=== PATIENT | female | born 1945 | race Caucasian/White ===

== ENCOUNTER 2019-09-02 11:57 | Emergency (ER) | payer MEDICARE ==
[2019-09-02] MEDS ORDERED: NA CHLORIDE 0.9% 500 ML ONE ×2 (13:03→14:23)
[2019-09-02 13:12] LABS: Absolute Lymphocytes (CBC) 2.6 K/uL (0.7-4.9); Basophils % 0.7 % (0-1.3); Hematocrit 41.1 % (36.0-45.0); Lymphocytes % 30.5 % (15.3-44.8); RBC Red Blood Cell Count 4.66 M/uL (3.86-4.86)
[2019-09-02 13:18] LABS: Protime INR 1.07
[2019-09-02 13:37] LABS: ALT/SGPT 26 U/L (12-78); AST/SGOT 17 U/L (15-37); Albumin 3.4 g/dL (3.4-5.0); Alkaline Phosphatase 97 U/L (45-117); BUN Blood Urea Nitrogen 13 mg/dL (7-18); Bicarbonate 28 mmol/L (21-32); Bilirubin Direct 0.1 mg/dL (0-0.2); Bilirubin Total 0.5 mg/dL (0.2-1.0); Glucose Level 328 mg/dL (74-106); Magnesium 1.9 mg/dL (1.8-2.4); NT PRO-BNP 80 pg/mL (<125); Potassium 4.2 mmol/L (3.5-5.1); Protein, Total 7.6 g/dL (6.4-8.2); Sodium Level 139 mmol/L (136-145); Troponin (Emerg Dept Use Only) < 0.02 ng/mL (0.0-0.045)
--- NOTE | 2019-09-02 13:39 | RAD REPORT ---
EXAM DESCRIPTION: RAD - Pelvis - 09/02/2019 1:14 pm CLINICAL HISTORY: Pelvic pain status post fall FINDINGS: No fracture or dislocation is seen.
--- NOTE | 2019-09-02 13:39 | RAD REPORT ---
EXAM DESCRIPTION: RAD - Hip Left 2 View - 09/02/2019 1:14 pm CLINICAL HISTORY: Left hip pain status post injury FINDINGS: No fracture or dislocation is seen.
--- NOTE | 2019-09-02 13:39 | RAD REPORT ---
EXAM DESCRIPTION: CT - Head C Spine Cap Wo Con - 09/02/2019 1:24 pm TECHNIQUE: Computed axial tomography of the head and cervical spine was obtained. Coronal and sagitt al reconstruction was performed Computed axial tomography of the chest, abdomen and pelvis was obtained. Contrast was not requested. All CT scans are performed using dose optimization technique as appropriate and may include automated exposure control or mA/KV adjustment according to patient size. CLINICAL HISTORY: Head and neck injury with chest and abdominal pain status post fall COMPARISON: CT 2017 head and neck FINDINGS: An intracranial bleed is not seen. The ventricles are normal in caliber. An extra-axial fluid collection is not noted. . Fluid within the sinuses/mastoids is not seen. A cervical fracture is not seen. No dislocation is noted. The evaluation of mediastinum, adelaida, vessels, solid organs and bowel are limited secondary to the lac k of contrast administration. A mediastinal hematoma is not noted. A pleural effusion is not seen. A lung contusion is not present. The liver,spleen, pancreas, adrenals,kidneys and bladder do not demonstrate a traumatic injury Fatty liver Nonobstructing left renal calculus IMPRESSION: 1. No acute intracranial abnormality is seen. 2. A cervical fracture is not visualized. If the patient continues have symptoms to suggest intracran ial/spinal cord pathology MRI be recommended 3. No traumatic abnormality involving the chest/abdomen/pelvis.
[2019-09-02] MEDS ORDERED: INSULIN -REGULAR HUMAN 50 UNIT/0.5 ML ML ONE (14:26)
--- NOTE | 2019-09-02 15:31 | EKG ---
Test Date: 2019-09-02 Test Time: 14:08:42 Systems Operator: SHANNON MEASUREMENT RESULTS: Intervals: Rate: 89 VT: 186 QRSD: 92 QT: 386 QTc: 469 [place]: P: 63 VT: 186 QRS: 2 T: 46 INTERPRETIVE STATEMENTS: Normal sinus rhythm Normal ECG Compared to ECG 05/24/2017 12:27:50 No significant changes Electronically Signed On 09-02-19 15:30:51 BARREL FINISHER by Valentín Carey
[2019-09-02 15:35] LABS: Urine Blood TRACE (NEG); Urine Glucose 2+ (NEG); Urine Protein NEGATIVE (NEG); Urine Specific Gravity 1.015 (1.005-1.030)
[2019-09-02] MEDS ORDERED: CEFTRIAXONE/SWI 1gm 1 GM/10 ML SYR ONE (15:42)
--- NOTE | 2019-09-02 16:25 | EDPHYS ---
Physician Documentation [facility] Name: Iman Saunders Age: 73 yrs Sex: Female : 1945 Arrival Date: 09/02/2019 Time: 11:59 Bed 24 Private MD: ED Physician Catrachito Rodriguez HPI: 09/02 12:55 This 73 yrs old Female presents to ER via EMS with complaints of Fall Injury. diaz 12:55 Details of fall: The patient fell from an upright position, while walking. Onset: The diaz symptoms/episode began/occurred just prior to arrival, this morning. Associated injuries: The patient sustained injury to the head, neck injury, injury to the chest, left hip, decreased range of motion, painful injury. 12:58 Severity of symptoms: At their worst the symptoms were moderate, in the emergency diaz department the symptoms are unchanged. The patient has not experienced similar symptoms in the past. Historical: - Allergies: 13:20 "pack per day injection"; mg2 13:20 Iodine; mg2 13:20 Macrobid; mg2 13:20 Nitrofurantoin Macrocrystal; mg2 13:20 Phenobarbital; mg2 13:20 shrimp; mg2 - Home Meds: 13:20 Aspirin Oral [Active]; gabapentin Oral [Active]; losartan Oral [Active]; Lipitor 10 mg mg2 Oral tab 1 tab once daily [Active]; montelukast Oral [Active]; Synthroid 50 mcg Oral tab 1 tab once daily [Active]; - PMHx: 13:20 CVA; High Cholesterol; Hypothyroidism; Seizures; Diabetes - NIDDM; mg2 - Immunization history:: Flu vaccine is up to date. - Family history:: not pertinent. - Social history:: Smoking status: Patient/guardian denies using tobacco, Patient/guardian denies using alcohol, street drugs, IV drugs. - Ebola Screening: : No symptoms or risks identified at this time. ROS: 12:55 Constitutional: Negative for fever, chills, and weight loss, Eyes: Negative for injury, diaz pain, redness, and discharge, ENT: Negative for injury, pain, and discharge, Neck: Negative for injury, pain, and swelling, Cardiovascular: Negative for chest pain, palpitations, and edema, Respiratory: Negative for shortness of breath, cough, wheezing, and pleuritic chest pain, Abdomen/GI: Negative for abdominal pain, nausea, vomiting, diarrhea, and constipation, Back: Negative for injury and pain, : Negative for injury, bleeding, discharge, and swelling, Skin: Negative for injury, rash, and discoloration, Neuro: Negative for headache, weakness, numbness, tingling, and seizure, Psych: Negative for depression, anxiety, suicide ideation, homicidal ideation, and hallucinations, Allergy/Immunology: Negative for hives, rash, and allergies, Endocrine: Negative for neck swelling, polydipsia, polyuria, polyphagia, and marked weight changes, Hematologic/Lymphatic: Negative for swollen nodes, abnormal bleeding, and unusual bruising. 12:55 MS/extremity: Positive for decreased range of motion, pain, tenderness, of the left eye and left jaw and pelvis and left hip. Exam: 12:55 Constitutional: This is a well developed, well nourished patient who is awake, alert, diaz and in no acute distress. Eyes: Pupils equal round and reactive to light, extra-ocular motions intact. Lids and lashes normal. Conjunctiva and sclera are non-icteric and not injected. Cornea within normal limits. Periorbital areas with no swelling, redness, or edema. ENT: Nares patent. No nasal discharge, no septal abnormalities noted. Tympanic membranes are normal and external auditory canals are clear. Oropharynx with no redness, swelling, or masses, exudates, or evidence of obstruction, uvula midline. Mucous membranes moist. Neck: Trachea midline, no thyromegaly or masses palpated, and no cervical lymphadenopathy. Supple, full range of motion without nuchal rigidity, or vertebral point tenderness. No Meningismus. Chest/axilla: Normal chest wall appearance and motion. Nontender with no deformity. No lesions are appreciated. Cardiovascular: Regular rate and rhythm with a normal S1 and S2. No gallops, murmurs, or rubs. Normal PMI, no JVD. No pulse deficits. Respiratory: Lungs have equal breath sounds bilaterally, clear to auscultation and percussion. No rales, rhonchi or wheezes noted. No increased work of breathing, no retractions or nasal flaring. Abdomen/GI: Soft, non-tender, with normal bowel sounds. No distension or tympany. No guarding or rebound. No evidence of tenderness throughout. Back: No spinal tenderness. No costovertebral tenderness. Full range of motion. Female : Normal external genitalia. Skin: Warm, dry with normal turgor. Normal color with no rashes, no lesions, and no evidence of cellulitis. Neuro: Awake and alert, GCS 15, oriented to person, place, time, and situation. Cranial nerves II-XII grossly intact. Motor strength 5/5 in all extremities. Sensory grossly intact. Cerebellar exam normal. Normal gait. Psych: Awake, alert, with orientation to person, place and time. Behavior, mood, and affect are within normal limits. 12:55 Head/face: Noted is abrasion(s), contusion. 12:55 Neck: External neck: tenderness, that is mild, of the left sternocleidomastoid. Vital Signs: 12:05 BP 162 / 81 RA Supine (auto/lg); Pulse 92; Resp 20 S; Temp 99.4(O); Pulse Ox 94% on jp3 R/A; Weight 83.91 kg; Height 5 ft. 3 in. (160.02 cm); Pain 8/10; 14:33 Pulse 94; Resp 18; Pulse Ox 96% on R/A; mg2 14:44 BP 160 / 77; mg2 12:05 Body Mass Index 32.77 (83.91 kg, 160.02 cm) jp3 MDM: 12:12 Patient medically screened. [facility] 12:58 Data reviewed: vital signs, nurses notes, lab test result(s), EKG, radiologic studies. [facility] 09/02 12:55 Order name: Basic Metabolic Panel; Complete Time: 13:41 [facility] 09/02 12:55 Order name: CBC with Diff; Complete Time: 13:41 [facility] 09/02 12:55 Order name: LFT's; Complete Time: 13:41 [facility] 09/02 12:55 Order name: Magnesium; Complete Time: 13:41 [facility] 09/02 12:55 Order name: NT PRO-BNP; Complete Time: 13:41 [facility] 09/02 12:55 Order name: PT-INR; Complete Time: 13:41 [facility] 12 12:55 Order name: Troponin (emerg Dept Use Only); Complete Time: 13:41 [facility] 09/02 12:55 Order name: CT Traumagram (Head C Spine CAP wo con); Complete Time: 13:45 [facility] 09/02 12:55 Order name: Pelvis XRAY; Complete Time: 13:45 [facility] 09/02 12:55 Order name: Hip Left 2 View XRAY; Complete Time: 13:45 [facility] 09/02 15:26 Order name: Urine Dipstick--Ancillary (enter results) em1 09/02 15:34 Order name: Glucose, Ancillary Testing; Complete Time: 15:35 EDMS 09/02 12:55 Order name: EKG; Complete Time: 12:56 [facility] 09/02 12:55 Order name: Cardiac monitoring; Complete Time: 13:23 [facility] 09/02 12:55 Order name: EKG - Nurse/Tech; Complete Time: 14:10 [facility] 09/02 12:55 Order name: IV Saline Lock; Complete Time: 13:23 [facility] 09/02 12:55 Order name: Labs collected and sent; Complete Time: 13:23 [facility] 09/02 12:55 Order name: O2 Per Protocol; Complete Time: 13:23 [facility] 09/02 12:55 Order name: O2 Sat Monitoring; Complete Time: 13:23 [facility] 09/02 12:55 Order name: Urine Dipstick-Ancillary (obtain specimen); Complete Time: 15:24 [facility] Administered Medications: 13:23 Drug: NS 0.9% 1000 ml Route: IV; Rate: 125 ml/hr; Site: left antecubital; mg2 15:45 Follow up: Response: No adverse reaction; IV Status: Order to discontinue infusion mg2 14:25 Drug: Insulin Regular Human 10 units {Co-Signature: rv (Francisco Javier Gonsales RN).} Route: mg2 IVP; Site: left antecubital; 15:43 Follow up: Response: No adverse reaction; Blood sugar is lowered mg2 14:27 Drug: NS 0.9% 1000 ml Route: IV; Rate: 1 bolus; Site: left antecubital; mg2 15:44 Follow up: Response: No adverse reaction; IV Status: Completed infusion; IV Intake: mg2 1000ml 15:43 Drug: Rocephin 1 grams Route: IV; Rate: per protocol; Site: left antecubital; mg2 15:44 Follow up: Response: No adverse reaction; IV Status: Completed infusion mg2 Disposition: 09/02/19 13:48 Discharged to Home. Impression: Fall due to bumping against object, Superficial injury of head, Strain of muscle, fascia and tendon at neck level, Type 2 diabetes mellitus, Unspecified kidney failure - INSUFFICENCY, Urinary tract infection, site not specified. - Condition is Stable. - Discharge Instructions: Type 2 Diabetes Mellitus, Diagnosis, Adult, Dysuria, Head Injury, Adult, Muscle Strain, Cervical Sprain, [id number], Fall Prevention in the Home, Tegy-[id number], Head Injury, Adult, [id number], Type 2 Diabetes Mellitus, Diagnosis, Adult, Luxx-qz-Murg. - Prescriptions for Tylenol- Codeine #3 300-30 mg Oral Tablet - take 2 tablets by ORAL route every 6 hours As needed; 26 tablet. Valium 2 mg Oral Tablet - take 1 tablet by ORAL route every 8 hours As needed; 20 tablet. Cipro 250 mg Oral Tablet - take 1 tablet by ORAL route every 12 hours; 14 tablet. - Medication Reconciliation Form, Thank You Letter, Antibiotic Education, Prescription Opioid Use form. - Follow up: Private Physician; When: 2 - 3 days; Reason: Recheck today's complaints, Continuance of care, Re-evaluation by your physician. Follow up: Jae Petersen MD; When: 2 - 3 days; Reason: Recheck today's complaints, Re-evaluation by your physician. - Problem is new. - Symptoms have improved. Signatures: Dispatcher [employer] EDCatrachito Moseley MD MD cha Gardose, Michele, RN KATY mg2 Francisco Javier Gonsales RN RN farheen Gonsales RN rv Corrections: (The following items were deleted from the chart) 15:37 13:48 09/02/2019 13:48 Discharged to Home. Impression: Fall due to bumping against diaz object; Superficial injury of head; Strain of muscle, fascia and tendon at neck level; Type 2 diabetes mellitus; Unspecified kidney failure - INSUFFICENCY. Condition is Stable. Forms are Medication Reconciliation Form, Thank You Letter, Antibiotic Education, Prescription Opioid Use. Follow up: Private Physician; When: 2 - 3 days; Reason: Recheck today's complaints, Continuance of care, Re-evaluation by your physician. Follow up: Jae Petersen; When: 2 - 3 days; Reason: Recheck today's complaints, Re-evaluation by your physician. Problem is new. Symptoms have improved. diaz 16:23 15:37 09/02/2019 13:48 Discharged to Home. Impression: Fall due to bumping against rv object; Superficial injury of head; Strain of muscle, fascia and tendon at neck level; Type 2 diabetes mellitus; Unspecified kidney failure - INSUFFICENCY; Urinary tract infection, site not specified. Condition is Stable. Discharge Instructions: Type 2 Diabetes Mellitus, Diagnosis, Adult, Head Injury, Adult, Muscle Strain, Cervical Sprain, [id number]-[id number], Fall Prevention in the Home, Zncq-[id number], Head Injury, Adult, Lyjo-wr-Gqvv, Type 2 Diabetes Mellitus, Diagnosis, Adult, Wpbu-tr-Wzhs. Prescriptions for Tylenol-Codeine #3 300-30 mg Oral Tablet - take 2 tablets by ORAL route every 6 hours As needed; 26 tablet, Valium 2 mg Oral Tablet - take 1 tablet by ORAL route every 8 hours As needed; 20 tablet. and Forms are Medication Reconciliation Form, Thank You Letter, Antibiotic Education, Prescription Opioid Use. Follow up: Private Physician; When: 2 - 3 days; Reason: Recheck today's complaints, Continuance of care, Re-evaluation by your physician. Follow up: Jae Petersen; When: 2 - 3 days; Reason: Recheck today's complaints, Re-evaluation by your physician. Problem is new. Symptoms have improved. diaz
--- NOTE | 2019-09-02 16:25 | ER ---
Nurse's Notes [facility] Name: Iman Saunders Age: 73 yrs Sex: Female : 1945 Arrival Date: 09/02/2019 Time: 11:59 Bed 24 Private MD: Diagnosis: Fall due to bumping against object;Superficial injury of head;Strain of muscle, fascia and tendon at neck level;Type 2 diabetes mellitus;Unspecified kidney failure-INSUFFICENCY;Urinary tract infection, site not specified Presentation: 09/02 12:08 Presenting complaint: EMS states: she was walking outside [facility] 30 min ago to her car mg2 when she tripped and fell and hit her left eye on the door of her car, she sustained neck pain, left shoulder and both hand pain. Care prior to arrival: Medication(s) given: toradol 30 mg IV. 12:08 Acuity: CAYETANO 3 mg2 12:08 Method Of Arrival: EMS: [facility] mg2 12:57 Transition of care: patient was not received from another setting of care. Onset of mg2 symptoms was September 02, 2019. Risk Assessment: Do you want to hurt yourself or someone else? Patient reports no desire to harm self or others. Initial Sepsis Screen: Does the patient meet any 2 criteria? No. Patient's initial sepsis screen is negative. Does the patient have a suspected source of infection? No. Patient's initial sepsis screen is negative. Historical: - Allergies: 13:20 "pack per day injection"; mg2 13:20 Iodine; mg2 13:20 Macrobid; mg2 13:20 Nitrofurantoin Macrocrystal; mg2 13:20 Phenobarbital; mg2 13:20 shrimp; mg2 - Home Meds: 13:20 Aspirin Oral [Active]; gabapentin Oral [Active]; losartan Oral [Active]; Lipitor 10 mg mg2 Oral tab 1 tab once daily [Active]; montelukast Oral [Active]; Synthroid 50 mcg Oral tab 1 tab once daily [Active]; - PMHx: 13:20 CVA; High Cholesterol; Hypothyroidism; Seizures; Diabetes - NIDDM; mg2 - Immunization history:: Flu vaccine is up to date. - Family history:: not pertinent. - Social history:: Smoking status: Patient/guardian denies using tobacco, Patient/guardian denies using alcohol, street drugs, IV drugs. - Ebola Screening: : No symptoms or risks identified at this time. Screenin:55 Abuse screen: Denies threats or abuse. Denies injuries from another. Nutritional mg2 screening: No deficits noted. Tuberculosis screening: No symptoms or risk factors identified. Fall Risk Fall in past 12 months (25 points). IV access (20 points). Assessment: 12:55 General: Appears in no apparent distress. comfortable, Behavior is calm, cooperative. mg2 Pain: Complains of pain in neck, both hand and left shoulder. Neuro: Level of Consciousness is awake, alert, obeys commands, Oriented to person, place, time, situation. Cardiovascular: Capillary refill < 3 seconds Patient's skin is warm and dry. Respiratory: Airway is patent Respiratory effort is even, unlabored, Respiratory pattern is regular, symmetrical. GI: No signs and/or symptoms were reported involving the gastrointestinal system. : No signs and/or symptoms were reported regarding the genitourinary system. EENT: No signs and/or symptoms were reported regarding the EENT system. Derm: Skin is intact, is healthy with good turgor, Skin is pink, warm \\T\\ dry. normal. Musculoskeletal: Circulation, motion, and sensation intact. Capillary refill < 3 seconds, Reports pain in neck, shoulder and both hand and face. 13:21 Reassessment: patient sent to ct scan via stretcher. backboard removed by the provider. mg2 c-collar still on with the patient;. 14:33 Reassessment: Patient appears in no apparent distress at this time. Patient and/or mg2 family updated on plan of care and expected duration. Pain level reassessed. Patient is alert, oriented x 3, equal unlabored respirations, skin warm/dry/pink. 16:05 Reassessment: patient up for dc. just waiting for the supervisor metal fabricating to call me back about mg2 her transportation. 16:21 Reassessment: Patient's sister called to tell the she is sending her daughter to pick rv up the patient. Vital Signs: 12:05 BP 162 / 81 RA Supine (auto/lg); Pulse 92; Resp 20 S; Temp 99.4(O); Pulse Ox 94% on jp3 R/A; Weight 83.91 kg; Height 5 ft. 3 in. (160.02 cm); Pain 8/10; 14:33 Pulse 94; Resp 18; Pulse Ox 96% on R/A; mg2 14:44 BP 160 / 77; mg2 12:05 Body Mass Index 32.77 (83.91 kg, 160.02 cm) jp3 ED Course: 11:59 Patient arrived in ED. em1 12:05 Initial lab(s) drawn, by me, held in ED. jp3 12:05 Maintain EMS IV. Dressing intact. Good blood return noted. Site clean \\T\\ dry. Gauge \\T\\ milan 3 site: 20gauge in Left AC. 12:08 Abel Muñoz, RN is Primary Nurse. mg2 12:12 Catrachito Rodriguez MD is Attending Physician. diaz 12:13 Patient has correct armband on for positive identification. Bed in low position. Call jp3 light in reach. Side rails up X 1. Side rails up X2. patient remains in c-collar and backboard that they arrived in from EMS. Warm blanket given. Verbal reassurance given. Pulse ox on. NIBP on. 12:23 Triage completed. mg2 13:15 Pelvis XRAY In Process Unspecified. EDMS 13:15 Hip Left 2 View XRAY In Process Unspecified. EDMS 13:21 Arm band placed on. mg2 13:21 No provider procedures requiring assistance completed. mg2 13:25 CT Traumagram (Head C Spine CAP wo con) In Process Unspecified. EDMS 13:46 Jae Petersen MD is Referral Physician. diaz 14:10 EKG done, by ED staff, reviewed by Catrachito Rodriguez MD. jp3 16:23 IV discontinued, intact, bleeding controlled, No redness/swelling at site. Pressure rv dressing applied. Administered Medications: 13:23 Drug: NS 0.9% 1000 ml Route: IV; Rate: 125 ml/hr; Site: left antecubital; mg2 15:45 Follow up: Response: No adverse reaction; IV Status: Order to discontinue infusion mg2 14:25 Drug: Insulin Regular Human 10 units {Co-Signature: rv (Francisco Javier Gonsales RN).} Route: mg2 IVP; Site: left antecubital; 15:43 Follow up: Response: No adverse reaction; Blood sugar is lowered mg2 14:27 Drug: NS 0.9% 1000 ml Route: IV; Rate: 1 bolus; Site: left antecubital; mg2 15:44 Follow up: Response: No adverse reaction; IV Status: Completed infusion; IV Intake: mg2 1000ml 15:43 Drug: Rocephin 1 grams Route: IV; Rate: per protocol; Site: left antecubital; mg2 15:44 Follow up: Response: No adverse reaction; IV Status: Completed infusion mg2 Intake: 15:44 IV: 1000ml; Total: 1000ml. mg2 Outcome: 13:48 Discharge ordered by MD. perales 16:22 Discharged to home ambulatory. rv 16:22 Condition: good 16:22 Discharge instructions given to patient, Instructed on discharge instructions, follow up and referral plans. medication usage, Demonstrated understanding of instructions, follow-up care, medications, Prescriptions given X 2. 16:23 Patient left the ED. rv Signatures: Dispatcher [employer] EDMS Catrachito Rodriguez MD MD cha Martinez, Eric 1 Abel Muñoz, KATY RN mg2 Francisco Javier Gonsales RN RN rv Conner Wetzel jp3 Francisco Javier Gonsales RN rv
[2019-09-02 16:31] VITALS: TEMP 99.4
[2019-09-02 16:32] VITALS: O2SAT 96
[2019-09-02 16:34] VITALS: BP 160/77
== END 2019-09-02 16:23 | disposition home or self-care (01) ==
LOC: ER 11:57
DX: S16.1XXA Strain of muscle, fascia and tendon at neck level, initial encounter (principal); N39.0 Urinary tract infection, site not specified; E11.9 Type 2 diabetes mellitus without complications; N28.9 Disorder of kidney and ureter, unspecified; E03.9 Hypothyroidism, unspecified; G40.909 Epilepsy, unspecified, not intractable, without status epilepticus; E78.00 Pure hypercholesterolemia, unspecified; W18.00XA Striking against unspecified object with subsequent fall, initial encounter; Y93.9 Activity, unspecified; Y92.9 Unspecified place or not applicable; Z79.82 Long term (current) use of aspirin; Z88.1 Allergy status to other antibiotic agents; Z88.5 Allergy status to narcotic agent; Z91.013 Allergy to seafood; Z91.048 Other nonmedicinal substance allergy status
CPT/HCPCS: 96361; 93005; 85025; 80048; 36415; 83735; 85610; 82947; 80076; 81003; 84484; 83880; 70450; 71250; 72125; 72170; 73502; 96375; 96374; 99284; J0696; J7040 ×2

== ENCOUNTER 2019-11-20 16:47 | Emergency (ER) | payer MEDICARE ==
[2019-11-20] MEDS ORDERED: FLUORESCEIN SODIUM 1 MG/WRAP ONE (17:32)
[2019-11-20] MEDS ORDERED: TETRACAINE HCL 0.5% 4ML OPTH ONE (17:32)
--- NOTE | 2019-11-20 17:48 | EDPHYS ---
Physician Documentation [facility] Name: Iman Saunders Age: 74 yrs Sex: Female : 1945 Arrival Date: 11/20/2019 Time: 16:48 Bed 15 Private MD: Del Strong T ED Physician Catrachito Rodriguez HPI: 11/19 17:48 This 74 yrs old Female presents to ER via Ambulatory with complaints of Eye jr8 Problem. 17:48 The patient is experiencing pain, redness, tearing. Onset: The symptoms/episode jr8 began/occurred acutely, today. Duration: the symptoms are continuous. Aggravated by nothing. Alleviated by nothing. Associated signs and symptoms: Pertinent positives: skin rash. Severity of symptoms: At their worst the symptoms were moderate in the emergency department the symptoms are unchanged. The patient has not experienced similar symptoms in the past. The patient has not recently seen a physician. Historical: - Allergies: 17:17 "pack per day injection"; iw 17:17 Iodine; iw 17:17 Macrobid; iw 17:17 Nitrofurantoin Macrocrystal; iw 17:17 Phenobarbital; iw 17:17 shrimp; iw - Home Meds: 17:17 Aspirin Oral [Active]; gabapentin Oral [Active]; Lipitor 10 mg Oral tab 1 tab once iw daily [Active]; losartan Oral [Active]; montelukast Oral [Active]; Synthroid 50 mcg Oral tab 1 tab once daily [Active]; - PMHx: 17:17 CVA; Diabetes - NIDDM; High Cholesterol; Hypothyroidism; Seizures; iw - Immunization history:: Adult Immunizations up to date. - Social history:: Smoking status: Patient denies any tobacco usage or history of. ROS: 17:48 ENT: Negative for injury, pain, and discharge, Neck: Negative for injury, pain, and jr8 swelling, Cardiovascular: Negative for chest pain, palpitations, and edema, Respiratory: Negative for shortness of breath, cough, wheezing, and pleuritic chest pain, Abdomen/GI: Negative for abdominal pain, nausea, vomiting, diarrhea, and constipation, Back: Negative for injury and pain, MS/Extremity: Negative for injury and deformity, Neuro: Negative for headache, weakness, numbness, tingling, and seizure. 17:48 Eyes: Positive for pain, redness, tearing, of the left eye. 17:48 Skin: Positive for lesions, rash, of the face. Exam: 17:48 Head/Face: Normocephalic, atraumatic. ENT: Nares patent. No nasal discharge, no jr8 septal abnormalities noted. Tympanic membranes are normal and external auditory canals are clear. Oropharynx with no redness, swelling, or masses, exudates, or evidence of obstruction, uvula midline. Mucous membranes moist. Neck: Trachea midline, no thyromegaly or masses palpated, and no cervical lymphadenopathy. Supple, full range of motion without nuchal rigidity, or vertebral point tenderness. No Meningismus. Cardiovascular: Regular rate and rhythm with a normal S1 and S2. No gallops, murmurs, or rubs. Normal PMI, no JVD. No pulse deficits. Respiratory: Lungs have equal breath sounds bilaterally, clear to auscultation and percussion. No rales, rhonchi or wheezes noted. No increased work of breathing, no retractions or nasal flaring. Abdomen/GI: Soft, non-tender, with normal bowel sounds. No distension or tympany. No guarding or rebound. No evidence of tenderness throughout. Back: No spinal tenderness. No costovertebral tenderness. Full range of motion. MS/ Extremity: Pulses equal, no cyanosis. Neurovascular intact. Full, normal range of motion. Neuro: Awake and alert, GCS 15, oriented to person, place, time, and situation. Cranial nerves II-XII grossly intact. Motor strength 5/5 in all extremities. Sensory grossly intact. Cerebellar exam normal. Normal gait. 17:48 Eyes: Periorbital structures: erythema, that is mild, on the left supraorbital ridge, left upper eyelid and left lower eyelid, vesicular lesions note to upper eye lid, Pupils: equal, round, and reactive to light and accomodation, Extraocular movements: intact throughout, Conjunctiva: injected, in the left eye, tearing noted, in left eye, Corneas: no acute changes, no evidence of abrasion, no dendritic lesions noted, a fluorescein strip employed to appreciate the findings, Sclera: no appreciated abnormality, Anterior chamber: normal, Examination of the other eye reveals no obvious gross abnormality. 17:48 Skin: rash a moderate rash is noted, rash can be described as erythematous, vesicular, zoster, on the left side of face and scalp. Vital Signs: 17:14 BP 148 / 83; Pulse 100; Resp 16 S; Temp 98.7(O); Pulse Ox 95% on R/A; Weight 82.55 kg; iw Height 5 ft. 3 in. (160.02 cm); Pain 8/10; 17:14 Body Mass Index 32.24 (82.55 kg, 160.02 cm) iw Procedures: 17:48 Eye Exam: utilized with tetracaine drops for numbing. No acute uptake of dye to cornea jr8 noted. MDM: 17:18 Patient medically screened. jr8 17:44 Data reviewed: vital signs, nurses notes, and as a result, I will discharge patient. jr8 Data interpreted: Pulse oximetry: on room air is 95 %. Interpretation: normal. Counseling: I had a detailed discussion with the patient and/or guardian regarding: the historical points, exam findings, and any diagnostic results supporting the discharge/admit diagnosis, the need for outpatient follow up, an opthalmologist, a family practitioner, to return to the emergency department if symptoms worsen or persist or if there are any questions or concerns that arise at home. ED course: Discussed with patient that there is no dendritic lesions on cornea at this time. Recommend f/u with ophthalmology regardless. Patient good with this and will follow up. Administered Medications: 17:44 Drug: Tetracaine Drops 0.5 % 1 drops {Note: by PA. Casa} Route: Ophthalmic; Site: left ca1 eye; 17:59 Drug: Acyclovir 800 mg Route: PO; ca1 18:00 Follow up: Response: Medication administered at discharge. ca1 Disposition: 18:23 Co-signature as Attending Physician, Catrachito Rodriguez MD I agree with the assessment and diaz plan of care. Disposition: 11/20/19 17:46 Discharged to Home. Impression: Zoster [herpes zoster]. - Condition is Stable. - Discharge Instructions: Shingles. - Prescriptions for Acyclovir 800 mg Oral Tablet - take 1 tablet by ORAL route 5 times per day for 7 days; 35 tablet. - Medication Reconciliation Form, Thank You Letter, Antibiotic Education, Prescription Opioid Use form. - Follow up: Seb Frost MD; When: 24 Hours; Reason: Recheck today's complaints, Continuance of care, Re-evaluation by your physician. Signatures: Catrachito Rodriguez MD MD cha Williams, Irene, RN RN Casa Garcia PA PA jr8 Kary Norwood RN RN ca1 Corrections: (The following items were deleted from the chart) 18:03 17:46 11/20/2019 17:46 Discharged to Home. Impression: Zoster [herpes zoster]. ca1 Condition is Stable. Forms are Medication Reconciliation Form, Thank You Letter, Antibiotic Education, Prescription Opioid Use. Follow up: Seb Frost; When: 24 Hours; Reason: Recheck today's complaints, Continuance of care, Re-evaluation by your physician. jr8
--- NOTE | 2019-11-20 17:48 | ER ---
Nurse's Notes [facility] Name: Iman Saunders Age: 74 yrs Sex: Female : 1945 Arrival Date: 11/20/2019 Time: 16:48 Bed 15 Private MD: Del Strong T Diagnosis: Zoster [herpes zoster] Presentation: 11/19 17:14 Chief complaint: Patient states: redness sand swelling to left eye area and down to iw left cheek area X 1 week. Coronavirus screen: The patient has NOT traveled to [place] in the past 14 days. Proceed with normal triage procedures. Ebola Screen: Patient negative for fever greater than or equal to 101.5 degrees Fahrenheit, and additional compatible Ebola Virus Disease symptoms Patient denies exposure to infectious person. Patient denies travel to an Ebola-affected area in the 21 days before illness onset. No symptoms or risks identified at this time. Initial Sepsis Screen: Does the patient meet any 2 criteria? No. Patient's initial sepsis screen is negative. Does the patient have a suspected source of infection? No. Patient's initial sepsis screen is negative. Risk Assessment: Do you want to hurt yourself or someone else? Patient reports no desire to harm self or others. 17:14 Method Of Arrival: Ambulatory iw 17:14 Acuity: CAYETANO 3 iw 17:25 Onset of symptoms was November 20, 2019. ca1 Historical: - Allergies: 17:17 "pack per day injection"; iw 17:17 Iodine; iw 17:17 Macrobid; iw 17:17 Nitrofurantoin Macrocrystal; iw 17:17 Phenobarbital; iw 17:17 shrimp; iw - Home Meds: 17:17 Aspirin Oral [Active]; gabapentin Oral [Active]; Lipitor 10 mg Oral tab 1 tab once iw daily [Active]; losartan Oral [Active]; montelukast Oral [Active]; Synthroid 50 mcg Oral tab 1 tab once daily [Active]; - PMHx: 17:17 CVA; Diabetes - NIDDM; High Cholesterol; Hypothyroidism; Seizures; iw - Immunization history:: Adult Immunizations up to date. - Social history:: Smoking status: Patient denies any tobacco usage or history of. Screenin:25 Abuse screen: Denies threats or abuse. Denies injuries from another. Nutritional ca1 screening: No deficits noted. Tuberculosis screening: No symptoms or risk factors identified. Fall Risk None identified. Assessment: 17:25 General: Appears in no apparent distress. comfortable, Behavior is calm, cooperative, ca1 appropriate for age. Pain: Complains of pain in left eye. Pain: Pain currently is 7 out of 10 on a pain scale. Neuro: Level of Consciousness is awake, alert, obeys commands, Oriented to person, place, time, situation, Appropriate for age. Derm: Skin is intact, is healthy with good turgor, Skin is pink, warm \\T\\ dry. Rash noted that is papular, red, raised, on top of head, forehead, left eye and left jainism. Musculoskeletal: Circulation, motion, and sensation intact. Capillary refill < 3 seconds. Vital Signs: 17:14 BP 148 / 83; Pulse 100; Resp 16 S; Temp 98.7(O); Pulse Ox 95% on R/A; Weight 82.55 kg; iw Height 5 ft. 3 in. (160.02 cm); Pain 8/10; 17:14 Body Mass Index 32.24 (82.55 kg, 160.02 cm) iw ED Course: 16:48 Patient arrived in ED. as 16:48 Del Strong MD is Private Physician. as 17:16 Triage completed. iw 17:17 Arm band placed on. iw 17:18 Casa Nguyen PA is PHCP. jr8 17:18 Catrachito Rodriguez MD is Attending Physician. jr8 17:25 Kary Norwood, RN is Primary Nurse. ca1 17:25 Patient has correct armband on for positive identification. Bed in low position. Call ca1 light in reach. Side rails up X 1. Pulse ox on. NIBP on. 17:25 Patient did not have IV access during this emergency room visit. ca1 17:40 Assist provider with eye exam of left eye. Performed by Casa OMALLEY Patient ca1 tolerated well. 17:46 Seb Frost MD is Referral Physician. jr8 Administered Medications: 17:44 Drug: Tetracaine Drops 0.5 % 1 drops {Note: by SHAHRAM Cormier.} Route: Ophthalmic; Site: left ca1 eye; 17:59 Drug: Acyclovir 800 mg Route: PO; ca1 18:00 Follow up: Response: Medication administered at discharge. ca1 Outcome: 17:46 Discharge ordered by MD. blankenship 18:00 Discharged to home ambulatory. ca1 18:00 Condition: stable 18:00 Discharge instructions given to patient, Instructed on discharge instructions, follow up and referral plans. medication usage, Demonstrated understanding of instructions, follow-up care, medications, Prescriptions given X 1. 18:03 Patient left the ED. ca1 Signatures: Emilia Cloud Irene, RN RN iw Casa Nguyen PA PA jr8 Acob, Cheryl, RN RN ca1
[2019-11-20] MEDS ORDERED: ACYCLOVIR 400 MG TABLET ONE (17:58)
[2019-11-20 18:50] VITALS: BP 148/83; TEMP 98.7; O2SAT 95
== END 2019-11-20 18:03 | disposition home or self-care (01) ==
LOC: ER 16:47
DX: B02.9 Zoster without complications (principal); Z91.09 Other allergy status, other than to drugs and biological substances; Z88.8 Allergy status to other drugs, medicaments and biological substances; Z91.013 Allergy to seafood; E03.9 Hypothyroidism, unspecified; Z86.73 Personal history of transient ischemic attack (TIA), and cerebral infarction without residual deficits
CPT/HCPCS: 99284

== ENCOUNTER 2020-02-05 17:21 | Observation (INO) | payer MEDICARE ==
[2020-02-05] MEDS ORDERED: NA CHLORIDE 0.9% 1,000 ML ONE (17:49)
[2020-02-05 18:05] LABS: Absolute Lymphocytes (CBC) 3.9 K/uL (0.7-4.9); Basophils % 0.9 % (0-1.3); Hematocrit 41.1 % (36.0-45.0); Lymphocytes % 37.1 % (15.3-44.8); MPV 7.4 fL (7.6-11.3)
[2020-02-05 18:11] LABS: Potassium 3.4 mmol/L (3.5-5.1)
--- NOTE | 2020-02-05 18:40 | EDPHYS ---
Physician Documentation [facility] Name: Iman Saunders Age: 74 yrs Sex: Female : 1945 Arrival Date: 02/05/2020 Time: 17:28 Bed 4 Private MD: ED Physician Adama Galo HPI: 02/04 17:30 This 74 yrs old Female presents to ER via Unassigned with complaints of rn tired, weakness. 17:[address], not much PO intake today, feels generalized fatigue, tired, hard "to rn keeps eyes open". Legs gave out, does not believe she hit her head, no LOC, no traumatic injury reported. States felt fine prior to walking/shopping. No sick contacts. No fever/cough/sob/chest pain/abd pain/back pain/urinary symptoms. Reports "kidney have been going out for a while now".. Onset: The symptoms/episode began/occurred just prior to arrival. Severity of symptoms: At their worst the symptoms were moderate in the emergency department the symptoms have improved. The patient has not experienced similar symptoms in the past. Reports since put in ambulance with AC and given some fluids, feels better. . Historical: - Allergies: 17:40 "pack per day injection"; ca1 17:40 Macrobid; ca1 17:40 Iodine; ca1 17:40 Nitrofurantoin Macrocrystal; ca1 17:40 Phenobarbital; ca1 17:40 shrimp; ca1 - Home Meds: 19:46 Aspirin Oral [Active]; gabapentin Oral [Active]; Lipitor 10 mg Oral tab 1 tab once ca1 daily [Active]; losartan Oral [Active]; montelukast Oral [Active]; Synthroid 50 mcg Oral tab 1 tab once daily [Active]; - PMHx: 17:40 CVA; Diabetes - NIDDM; High Cholesterol; Hypothyroidism; Seizures; ca1 - Immunization history:: Adult Immunizations up to date. - Social history:: Smoking status: Patient denies any tobacco usage or history of. - Family history:: not pertinent. - Hospitalizations: : No recent hospitalization is reported. ROS: 17:30 Constitutional: Negative for fever, chills, and weight loss, Eyes: Negative for injury, rn pain, redness, and discharge, Neck: Negative for injury, pain, and swelling, Cardiovascular: Negative for chest pain, palpitations, and edema, Respiratory: Negative for shortness of breath, cough, wheezing, and pleuritic chest pain, Abdomen/GI: Negative for abdominal pain, nausea, vomiting, diarrhea, and constipation, Back: Negative for injury and pain, MS/Extremity: Negative for injury and deformity, Skin: Negative for injury, rash, and discoloration, Neuro: Negative for numbness, tingling, and seizure. Exam: 17:30 Constitutional: This is a well developed, well nourished patient who is awake, rn somnolent but holds complete conversation and follows commands. Head/Face: Normocephalic, atraumatic. ENT: dry MM Cardiovascular: Tachycardic, regular, intact distal pulses Respiratory: No increased work of breathing, no retractions or nasal flaring. Abdomen/GI: soft, non-tender, non-distended MS/ Extremity: Pulses equal, no cyanosis. Neurovascular intact. Full, normal range of motion. Equal circumference. Neuro: Awake, GCS 15, oriented to person, place, time, and situation. Cranial nerves II-XII grossly intact. Motor strength 5/5 in all extremities. Sensory grossly intact. Vital Signs: 17:36 BP 155 / 82; Pulse 109; Resp 17 S; Temp 99(TE); Pulse Ox 95% on R/A; Weight 81.65 kg ca1 (R); Height 5 ft. 3 in. (160.02 cm) (R); Pain 0/10; 18:35 BP 158 / 66; Pulse 99; Resp 20; Pulse Ox 99% on R/A; ca1 19:36 BP 149 / 58; Pulse 88; Resp 16; Pulse Ox 95% on R/A; ca1 20:36 BP 142 / 79; Pulse 89; Resp 16 S; Pulse Ox 95% on R/A; ca1 17:36 Body Mass Index 31.89 (81.65 kg, 160.02 cm) ca1 MDM: 17:28 Patient medically screened. rn 18:17 Response to treatment: the patient's symptoms have mildly improved after treatment. rn 18:17 ED course: Pt seems to be improving with fluids and time, has more mobility, smiling, rn states feels a little better, and now states has not bene able to "find" her thyroid medication in 1.5 months, thyroid studies added. . 18:34 ED course: Pt with 3 episodes of rhythmic jerking, states hx of seizures, cannot recall rn what type of medication she takes, I consulted with her neurologist Dr. Mathew, doesn't recall either, will consult on patient. Each episode is followed by somnolence similar to when she got here initially, each episode lasts approx 15-30 seconds and resolves on its own. . 18:40 Differential Diagnosis seizures, epilepsy, TIA. Data reviewed: vital signs, nurses rn notes, lab test result(s), EKG, radiologic studies, CT scan, and as a result, I will admit patient. Counseling: I had a detailed discussion with the patient and/or guardian regarding: the historical points, exam findings, and any diagnostic results supporting the discharge/admit diagnosis, lab results, radiology results, the need for further work-up and treatment in the hospital. ED course: Notified Dr. Arshad regarding admission and my discussion with Dr. Mathew. Home meds based on record review is keppra and lamictal, ordered. . 18:45 ED course: Given multiple partial seizures here with identical fatigue and somnolence rn as when she presented, likely recurrent seizures. Nothing on exam to suggest stroke. Neg ct head. . 02/04 17:29 Order name: CBC with Diff; Complete Time: 18:13 rn 02/04 17:29 Order name: Basic Metabolic Panel; Complete Time: 18:13 rn 02/04 17:29 Order name: Urine Microscopic Only; Complete Time: 07:21 rn 02/04 17:29 Order name: Procalcitonin; Complete Time: 18:34 rn 02/04 17:29 Order name: [place] Screen Profile; Complete Time: 18:34 rn 02/04 18:16 Order name: TSH; Complete Time: 07:21 rn 02/04 17:29 Order name: CT Head Brain wo Cont; Complete Time: 18:45 rn 02/04 18:16 Order name: T4 Free; Complete Time: 07:21 rn 02/04 18:32 Order name: Urine Dipstick--Ancillary (enter results); Complete Time: 07:21 tt3 02/04 18:48 Order name: Urine Culture EDMS 02/04 17:29 Order name: IV Start; Complete Time: 17:41 rn 02/04 17:29 Order name: Urine Dipstick-Ancillary (obtain specimen); Complete Time: 18:35 rn 02/04 17:29 Order name: EKG; Complete Time: 17:30 rn 02/04 17:29 Order name: EKG - Nurse/Tech; Complete Time: 17:51 rn Administered Medications: 17:45 Drug: NS 0.9% 1000 ml Route: IV; Rate: 1000 ml; Site: left antecubital; ca1 19:44 Follow up: Response: No adverse reaction; IV Status: Completed infusion ca1 18:48 Drug: Potassium Chloride 10 mEq Route: IV; Rate: calculated rate; Site: left aa5 antecubital; 19:43 Follow up: IV Status: Infusion continued upon admission ca1 19:07 Drug: Keppra 1000 mg Route: IV; Rate: calculated rate; Site: left antecubital; ca1 19:43 Follow up: Response: No adverse reaction; Marked relief of symptoms; IV Status: ca1 Completed infusion 19:08 Drug: LaMICtal 150 mg Route: PO; ca1 19:43 Follow up: Response: No adverse reaction; Marked relief of symptoms ca1 Disposition: 02/05/20 18:40 Hospitalization ordered by Prince Jeancarlos for Inpatient Admission. Preliminary diagnosis are Epilepsy and recurrent seizures, Dehydration, Hypokalemia. - Bed requested for Telemetry/MedSurg (Inpatient). - Status is Inpatient Admission. ca1 - Condition is Stable. - Problem is new. - Symptoms have improved. Signatures: Dispatcher [employer] EDMS Adama Galo MD MD rn Calderon, Audri, RN RN aa5 Veuns Damon RN RN Kary Norwood RN RN ca1 Corrections: (The following items were deleted from the chart) 18:42 18:25 Head Angio+CT.RAD.BRZ ordered. EDMS EDMS 18:42 18:25 Neck Angio+CT.RAD.BRZ ordered. EDMS EDMS 19:34 18:40 Hospitalization Ordered by [facility] Jeancarlos [facility] for Inpatient Admission. Preliminary cg diagnosis is Epilepsy and recurrent seizures; Dehydration; Hypokalemia. Bed requested for Telemetry/MedSurg (Inpatient). Status is Inpatient Admission. Condition is Stable. Problem is new. Symptoms have improved. rn 20:37 19:34 02/05/2020 18:40 Hospitalization Ordered by [facility] Jeanc[facility] for Inpatient ca1 Admission. Preliminary diagnosis is Epilepsy and recurrent seizures; Dehydration; Hypokalemia. Bed requested for Telemetry/MedSurg (Inpatient). Status is Inpatient Admission. Condition is Stable. Problem is new. Symptoms have improved. cg
--- NOTE | 2020-02-05 18:40 | ER ---
Nurse's Notes [facility] Name: Iman Saunders Age: 74 yrs Sex: Female : 1945 Arrival Date: 02/05/2020 Time: 17:28 Bed 4 Private MD: Diagnosis: Epilepsy and recurrent seizures;Dehydration;Hypokalemia Presentation: 02/04 17:34 Chief complaint: EMS states: outside shopping when she felt tired and weak on both ca1 knees. Friend slowly assisted her down to a sit. No LOC. Did not hit head. She has been lethargic since. 17:34 Method Of Arrival: EMS: [facility] ca1 17:36 Coronavirus screen: Proceed with normal triage. Patient denies a cough. Patient denies ca1 shortness of breath or difficulty breathing. Patient denies measured and/or subjective temperature greater than 100.4F prior to today's visit. Patient denies travel on a cruise ship or to a country the [facility] currently lists as an affected area. Ebola Screen: Patient negative for fever greater than or equal to 101.5 degrees Fahrenheit, and additional compatible Ebola Virus Disease symptoms Patient denies exposure to infectious person. Patient denies travel to an Ebola-affected area in the 21 days before illness onset. No symptoms or risks identified at this time. Initial Sepsis Screen: Does the patient meet any 2 criteria? No. Patient's initial sepsis screen is negative. Does the patient have a suspected source of infection? No. Patient's initial sepsis screen is negative. Risk Assessment: Do you want to hurt yourself or someone else? Patient reports no desire to harm self or others. Onset of symptoms was February 05, 2020. 17:36 Acuity: CAYETANO 3 ca1 Triage Assessment: 17:35 General: Appears in no apparent distress. comfortable, Behavior is calm, cooperative, ca1 appropriate for age. Pain: Denies pain. EENT: No signs and/or symptoms were reported regarding the EENT system. Neuro: Level of Consciousness is obeys commands, lethargic, Oriented to person, place, time, situation, Appropriate for age. Cardiovascular: Heart tones S1 S2 present Capillary refill < 3 seconds Patient's skin is warm and dry. Rhythm is sinus tachycardia. Respiratory: Airway is patent Respiratory effort is even, unlabored, Respiratory pattern is regular, symmetrical, Breath sounds are clear bilaterally. GI: Abdomen is round non-distended, Bowel sounds present X 4 quads. Abd is soft and non tender X 4 quads. : No signs and/or symptoms were reported regarding the genitourinary system. Derm: Skin is intact, is healthy with good turgor, Skin is pink, warm \\T\\ dry. Musculoskeletal: Circulation, motion, and sensation intact. Capillary refill < 3 seconds. Historical: - Allergies: 17:40 "pack per day injection"; ca1 17:40 Macrobid; ca1 17:40 Iodine; ca1 17:40 Nitrofurantoin Macrocrystal; ca1 17:40 Phenobarbital; ca1 17:40 shrimp; ca1 - Home Meds: 19:46 Aspirin Oral [Active]; gabapentin Oral [Active]; Lipitor 10 mg Oral tab 1 tab once ca1 daily [Active]; losartan Oral [Active]; montelukast Oral [Active]; Synthroid 50 mcg Oral tab 1 tab once daily [Active]; - PMHx: 17:40 CVA; Diabetes - NIDDM; High Cholesterol; Hypothyroidism; Seizures; ca1 - Immunization history:: Adult Immunizations up to date. - Social history:: Smoking status: Patient denies any tobacco usage or history of. - Family history:: not pertinent. - Hospitalizations: : No recent hospitalization is reported. Screenin:45 Abuse screen: Denies threats or abuse. Denies injuries from another. Nutritional ca1 screening: No deficits noted. Tuberculosis screening: No symptoms or risk factors identified. Fall Risk Fall in past 12 months (25 points). Secondary diagnosis (15 points) seizures, IV access (20 points). Total Howard Fall Scale indicates High Risk Score (45 or more points). Fall prevention measures have been instituted. Side Rails Up X 2 Family Present and informed to notify staff if the need to leave the bedside As available patient and family educated on Fall Prevention Program and Strategies. Assessment: 17:45 Reassessment: SEE TRIAGE ASSESSMENT. ca1 18:35 Reassessment: Patient appears in no apparent distress at this time. No changes from ca1 previously documented assessment. Patient and/or family updated on plan of care and expected duration. Pain level reassessed. Patient is alert, oriented x 3, equal unlabored respirations, skin warm/dry/pink. 19:36 Reassessment: Patient appears in no apparent distress at this time. Patient and/or ca1 family updated on plan of care and expected duration. Pain level reassessed. Patient is alert, oriented x 3, equal unlabored respirations, skin warm/dry/pink. Neuro: Level of Consciousness is awake, alert, obeys commands. 20:36 Reassessment: Patient appears in no apparent distress at this time. Patient is alert, ca1 oriented x 3, equal unlabored respirations, skin warm/dry/pink. Vital Signs: 17:36 BP 155 / 82; Pulse 109; Resp 17 S; Temp 99(TE); Pulse Ox 95% on R/A; Weight 81.65 kg ca1 (R); Height 5 ft. 3 in. (160.02 cm) (R); Pain 0/10; 18:35 BP 158 / 66; Pulse 99; Resp 20; Pulse Ox 99% on R/A; ca1 19:36 BP 149 / 58; Pulse 88; Resp 16; Pulse Ox 95% on R/A; ca1 20:36 BP 142 / 79; Pulse 89; Resp 16 S; Pulse Ox 95% on R/A; ca1 17:36 Body Mass Index 31.89 (81.65 kg, 160.02 cm) ca1 ED Course: 17:28 Patient arrived in ED. rn 17:28 Adama Galo MD is Attending Physician. rn 17:34 Kary Norwood RN is Primary Nurse. ca1 17:39 Triage completed. ca1 17:40 Arm band placed on right wrist. ca1 17:45 Patient has correct armband on for positive identification. Placed in gown. Bed in low ca1 position. Call light in reach. Side rails up X2. search marketing specialist on. Pulse ox on. NIBP on. Warm blanket given. 17:51 No provider procedures requiring assistance completed. Initial lab(s) drawn, by me, ca1 sent to lab. Maintain EMS IV. Dressing intact. Good blood return noted. Site clean \\T\\ dry. Gauge \\T\\ site: G20 LAC. 18:02 CT Head Brain wo Cont In Process Unspecified. EDMS 18:39 Prince Arshad MD is Hospitalizing Provider. rn 19:38 Patient admitted, IV remains in place. ca1 Administered Medications: 17:45 Drug: NS 0.9% 1000 ml Route: IV; Rate: 1000 ml; Site: left antecubital; ca1 19:44 Follow up: Response: No adverse reaction; IV Status: Completed infusion ca1 18:48 Drug: Potassium Chloride 10 mEq Route: IV; Rate: calculated rate; Site: left aa5 antecubital; 19:43 Follow up: IV Status: Infusion continued upon admission ca1 19:07 Drug: Keppra 1000 mg Route: IV; Rate: calculated rate; Site: left antecubital; ca1 19:43 Follow up: Response: No adverse reaction; Marked relief of symptoms; IV Status: ca1 Completed infusion 19:08 Drug: LaMICtal 150 mg Route: PO; ca1 19:43 Follow up: Response: No adverse reaction; Marked relief of symptoms ca1 Outcome: 18:40 Decision to Hospitalize by Provider. rn 19:55 Admitted to Med/surg accompanied by tech, via stretcher, room 206, with chart, Report ca1 called to KATY Abbott 19:55 Condition: stable 19:55 Instructed on the need for admit. 20:37 Patient left the ED. ca1 Signatures: Dispatcher [employer] EDMS Adama Galo MD MD rn Calderon, Audri, RN RN aa5 Kary Norwood RN RN ca1 Corrections: (The following items were deleted from the chart) 19:42 19:38 Admitted to Med/surg accompanied by tech, via wheelchair, room 228, with chart, ca1 Report called to KATY SOLOMON ca1 19:42 19:38 Condition: stable ca1 ca1 19:42 19:38 Instructed on the need for admit, ca1 ca1
[2020-02-05] MEDS ORDERED: KCL 20 MEQ/100 mL IVPB 20 MEQ/100 ML BAG IV ONE (18:44)
[2020-02-05] MEDS ORDERED: NA CHLORIDE 0.9% 100 ML IV ONE ×2 (18:44→19:08)
--- NOTE | 2020-02-05 18:44 | RAD REPORT ---
EXAM DESCRIPTION: CT - Head Brain Wo Cont - 02/05/2020 6:01 pm CLINICAL HISTORY: Syncope COMPARISON: October 2019 TECHNIQUE: Computed axial tomography of the head was obtained. IV contrast was not requested. All CT scans are performed using dose optimization technique as appropriate and may include automated exposure control or mA/KV adjustment according to patient size. FINDINGS: An intracranial bleed is not seen . The ventricles are normal in caliber. No extra-axial fluid collection is noted. Fluid within the sinuses/ mastoids is not seen. IMPRESSION: No acute intracranial abnormality is seen. If patient's symptoms persist MRI of the bra in would be recommended.
[2020-02-05 18:45] LABS: Urine Bacteria 20-50 /HPF (<20); Urine Culture Reflex Order REFLEXED; Urine RBC NONE SEEN /HPF (NONE SEEN)
[2020-02-05 18:59] LABS: Thyroid Stimulating Hormone 5.87 uIU/mL (0.360-3.740)
[2020-02-05 19:01] LABS: Urine Blood NEGATIVE (NEG); Urine Glucose TRACE (NEG)
[2020-02-05 19:02] LABS: Urine Protein NEGATIVE (NEG)
[2020-02-05] MEDS ORDERED: LEVETIRACETAM 500 MG/5 ML VIAL IV ONE (19:07)
[2020-02-05 20:50] VITALS: BMI 32.0
[2020-02-05] MEDS ORDERED: MORPHINE 2 MG/ML SYR IV PRN (21:51)
[2020-02-05] MEDS ORDERED: ONDANSETRON 4 MG/2 ML VIAL IV PRN (21:51)
[2020-02-05] MEDS ORDERED: ACETAMINOPHEN 500 MG TAB PO PRN (21:51)
[2020-02-05] MEDS ORDERED: levETIRAcetam 500 MG in NA CHLORIDE 0.9% 100 ML IV SCH (22:00)
[2020-02-05] MEDS: NA CHLORIDE 0.9% 1,000 ML IV SCH (22:35)
[2020-02-06 00:56] VITALS: O2SAT 96
[2020-02-06 05:48] LABS: Albumin 2.8 g/dL (3.4-5.0); Bilirubin Total 0.4 mg/dL (0.2-1.0); Potassium 3.9 mmol/L (3.5-5.1); Protein, Total 6.7 g/dL (6.4-8.2)
[2020-02-06 06:12] LABS: Absolute Lymphocytes (CBC) 3.1 K/uL (0.7-4.9); Basophils % 0.7 % (0-1.3); Hematocrit 37.1 % (36.0-45.0); Lymphocytes % 40.2 % (15.3-44.8); MPV 7.5 fL (7.6-11.3); RBC Red Blood Cell Count 4.21 M/uL (3.86-4.86)
[2020-02-06 06:14] LABS: Protime INR 1.03
[2020-02-06] MEDS ORDERED: LORazepam 2 MG/ML VIAL IV ONE (06:25)
--- NOTE | 2020-02-06 08:02 | P.HP ---
Certification for Inpatient Patient admitted to: Observation With expected LOS: <2 Midnights Patient will require the following post-hospital care: None Practitioner: I am a practitioner with admitting privileges, knowledge of patient current condition, hospital course, and medical plan of care. Services: Services provided to patient in accordance with Admission requirements found in Title 42 Section 412.3 of the Code of Federal Regulations Patient History Date of Service: 02/05/20 Reason for admission: Seizure disorder History of Present Illness: Patient is a 74-year-old female who presents to the emergency room after having questionable generalized tonic-clonic seizure. Patient been feeling but the and she has had generalized weakness. She was also having some dysuria. She came into the ER for further evaluation. In the emergency room she was having generalized tremors. It was felt she had a seizure so she was admitted to the hospital for further evaluation. Eyes are on the floor and she had similar episode this morning. It appears she was rocking back and forth. Whenever I lifted her legs up the seizure stopped. The she was not responding to any of my questions but when we put oxygen on her she squinted her eyes tightly. She was admitted to be further evaluated by Neurology. will get her started on 1 dose of anti epileptics. 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 EEG pending. Allergies nitrofurantoin [From Macrobid] Allergy (Severe, Verified 02/05/20 20:59) Hives shrimp Allergy (Severe, Verified 02/05/20 20:59) Hives phenobarbital Adverse Reaction (Severe, Verified 02/05/20 20:59) disorientation Iodine Allergy (Intermediate, Uncoded 05/13/17 16:20) Hives/Rash IV contrast Allergy (Intermediate, Uncoded 04/30/17 20:47) Hives "pack Allergy (Uncoded 05/24/17 15:50) Unknown Nitro Allergy (Uncoded 05/24/17 15:50) Unknown - Past Medical/Surgical History Has patient received pneumonia vaccine in the past: Yes Diabetic: Yes -: Hypertension -: Seizure disorder -: History of CVA - R side weakness -: Hyperlipidemia -: Hypothyroidism -: Hysterectomy -: Appendectomy -: Bladder surgery -: dewayne cataract sx Psychosocial/ Personal History: She is a . She has 1 child. She does not work. - Family History Father Medical History: Cancer Mother Medical History: Heart disease, Diabetes - Social History Smoking Status: Never smoker Alcohol use: No CD- Drugs: No Place of Residence: Home Review of Systems 10-point ROS is otherwise unremarkable Physical Examination - Vital Signs Temperature: 97.5 F Blood Pressure: 163/96 Pulse: 84 Respirations: 16 Pulse Ox (%): 98 - Physical Exam General: Alert, In no apparent distress, Oriented x3 HEENT: Atraumatic, PERRLA, Mucous membr. moist/pink, EOMI, Sclerae nonicteric Neck: Supple, 2+ carotid pulse no bruit, No LAD, Without JVD or thyroid abnormality Respiratory: Clear to auscultation bilaterally, Normal air movement Cardiovascular: Regular rate/rhythm, Normal S1 S2, No murmurs Gastrointestinal: Normal bowel sounds, Soft and benign, Non-distended, No tenderness Musculoskeletal: No clubbing, No swelling, No tenderness Neurological: Normal gait, Normal speech, Normal strength at 5/5 x4 extr, Normal tone, Sensation intact, Cranial nerves 3-12 intact, Normal affect Lymphatics: No axilla or inguinal lymphadenopathy - Studies Laboratory Data (last 24 hrs) 02/05/20 17:49: Sodium 138, Potassium 3.4 L, BUN 13, Creatinine 1.41 H, Glucose 224 H 02/05/20 17:49: WBC 10.5, Hgb 13.6, Hct 41.1, Plt Count 368 Assessment & Plan - Problems (Diagnosis) (1) Pseudoseizures Current Visit: Yes Status: Acute (2) History of TIA (transient ischemic attack) Current Visit: No Status: Chronic (3) Hyperlipidemia Onset Date: 05/01/17 Current Visit: No Status: Chronic Qualifiers: (4) Hypertension Onset Date: 04/24/17 Current Visit: No Status: Chronic Qualifiers: (5) Hypothyroidism Onset Date: 04/24/17 Current Visit: No Status: Chronic Qualifiers: - Plan Plan: 1. Gentle hydration 2. EEG 3. Neurology consultation 4. Anxiolytics 5. Anti epileptics 6. Seizure precautions 7. GI and DVT prophylaxis Discharge Plan: Home Plan to discharge in: 48 Hours - Advance Directives Does patient have a Living Will: No Does patient have a Durable POA for Healthcare: No - Code Status/Comfort Care Code Status Assessed: Yes Code Status: Full Code Critical Care: No Time Spent Managing PTS Care (In Minutes): 40
[2020-02-06] MEDS ORDERED: GLUCAGON 1 MG/VIAL IM PRN (08:05)
[2020-02-06] MEDS ORDERED: D50W 25 GM/50 ML SYRINGE/VIAL IV PRN (08:05)
--- NOTE | 2020-02-06 08:06 | P.PN ---
Subjective Date of Service: 02/06/20 Patient had an episode were she was rocking herself back and forth again this morning. This was easily suppressed with raising her legs. Patient has workup pending & neurology consultation pending today Review of Systems 10-point ROS is otherwise unremarkable Physical Examination - Vital Signs Temperature: 97.5 F Blood Pressure: 163/96 Pulse: 84 Respirations: 16 Pulse Ox (%): 98 - Physical Exam General: Alert, In no apparent distress, Oriented x3 Respiratory: Clear to auscultation bilaterally, Normal air movement Cardiovascular: Regular rate/rhythm, Normal S1 S2, No murmurs Gastrointestinal: Normal bowel sounds, Soft and benign, Non-distended, No tenderness Musculoskeletal: No clubbing, No swelling, No tenderness Integumentary: No rashes Neurological: Normal speech, Normal tone, Sensation intact, Cranial nerves 3-12 intact, Normal affect - Studies Laboratory Data (last 24 hrs) 02/05/20 17:49: Sodium 138, Potassium 3.4 L, BUN 13, Creatinine 1.41 H, Glucose 224 H 02/05/20 17:49: WBC 10.5, Hgb 13.6, Hct 41.1, Plt Count 368 Medications List Reviewed: Yes Assessment & Plan - Problems (Diagnosis) (1) Pseudoseizures Current Visit: Yes Status: Acute (2) History of TIA (transient ischemic attack) Current Visit: No Status: Chronic (3) Hyperlipidemia Onset Date: 05/01/17 Current Visit: No Status: Chronic Qualifiers: (4) Hypertension Onset Date: 04/24/17 Current Visit: No Status: Chronic Qualifiers: (5) Hypothyroidism Onset Date: 04/24/17 Current Visit: No Status: Chronic Qualifiers: - Plan Plan: Continue with plan of care as mentioned below 1. Gentle hydration 2. EEG pending 3. Neurology consultation pending 4. Anxiolytics as needed 5. Anti epileptics given last night. Will hold off at this time 6. Seizure precautions 7. GI and DVT prophylaxis Discharge Plan: Home Plan to discharge in: 48 Hours - Advance Directives Does patient have a Living Will: No Does patient have a Durable POA for Healthcare: No - Code Status/Comfort Care Code Status: Full Code Critical Care: No Time Spent Managing PTS Care (In Minutes): 20
[2020-02-06] MEDS ORDERED: levETIRAcetam 500 MG in NA CHLORIDE 0.9% 100 ML IV SCH (09:00)
[2020-02-06] MEDS: INSULIN -REGULAR HUMAN 50 UNIT/0.5 ML ML SQ SCH ×2 (12:40→16:11)
[2020-02-06] MEDS: NA CHLORIDE 0.9% 1,000 ML IV SCH (12:43)
--- NOTE | 2020-02-06 19:26 | P.DS ---
Discharge Date: 02/06/20 Disposition: DC HOME/HOME HEALTH CARE Discharge Condition: GOOD Reason for Admission: Seizure disorder Consultations: Neurology - Problems (1) Pseudoseizures Status: Acute (2) History of TIA (transient ischemic attack) Status: Chronic (3) Hyperlipidemia Onset Date: 05/01/17 Status: Chronic Qualifiers: (4) Hypertension Onset Date: 04/24/17 Status: Chronic Qualifiers: (5) Hypothyroidism Onset Date: 04/24/17 Status: Chronic Qualifiers: Brief History of Present Illness: Patient is a 74-year-old female who presents to the emergency room after having questionable generalized tonic-clonic seizure. Patient been feeling but the and she has had generalized weakness. She was also having some dysuria. She came into the ER for further evaluation. In the emergency room she was having generalized tremors. It was felt she had a seizure so she was admitted to the hospital for further evaluation. Eyes are on the floor and she had similar episode this morning. It appears she was rocking back and forth. Whenever I lifted her legs up the seizure stopped. The she was not responding to any of my questions but when we put oxygen on her she squinted her eyes tightly. She was admitted to be further evaluated by Neurology. will get her started on 1 dose of anti epileptics. 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 EEG pending. Hospital Course: Patient was seen by Neurology for seizures. This is most likely pseudoseizures. Patient will follow-up with the neurologist as an outpatient. At this time, patient is stable for discharge home. Vital Signs/Physical Exam: Temp Pulse Resp BP Pulse Ox 97.4 F 70 16 139/65 95 02/06/20 16:00 02/06/20 16:00 02/06/20 16:00 02/06/20 16:00 02/06/20 16:00 General: Alert, In no apparent distress, Oriented x3 Laboratory Data at Discharge: WBC 7.6 K/uL (4.3-10.9) D 02/06/20 05:15 Hgb 12.5 g/dL (12.0-15.0) 02/06/20 05:15 Hct 37.1 % (36.0-45.0) 02/06/20 05:15 Plt Count 316 K/uL (152-406) 02/06/20 05:15 PT 12.1 SECONDS (9.5-12.5) 02/06/20 05:15 INR 1.03 02/06/20 05:15 APTT 28.1 SECONDS (24.3-36.9) 02/06/20 05:15 Sodium 140 mmol/L (136-145) 02/06/20 05:15 Potassium 3.9 mmol/L (3.5-5.1) 02/06/20 05:15 BUN 9 mg/dL (7-18) 02/06/20 05:15 Creatinine 1.13 mg/dL (0.55-1.3) 02/06/20 05:15 Glucose 180 mg/dL (74-106) H 02/06/20 05:15 Total Bilirubin 0.4 mg/dL (0.2-1.0) 02/06/20 05:15 AST 14 U/L (15-37) L 02/06/20 05:15 ALT 13 U/L (12-78) 02/06/20 05:15 Alkaline Phosphatase 74 U/L (45-117) 02/06/20 05:15 Home Medications: Aspirin [Aspirin EC 81 MG] 81 mg PO DAILY 02/06/20 Atorvastatin Calcium [Lipitor*] 10 mg PO BEDTIME 02/06/20 Gabapentin 300 mg PO DAILY 02/06/20 Levothyroxine [Synthroid*] 125 mcg PO [id number] 02/06/20 Metformin HCl [Metformin HCl ER] 500 mg PO BID 02/06/20 Pantoprazole [Protonix Tab*] 40 mg PO DAILY 02/06/20 Sertraline [Zoloft*] 50 mg PO DAILY 02/06/20 clonazePAM [Klonopin] 0.5 mg PO BID PRN #30 tablet 02/06/20 lamoTRIgine [Lamotrigine] 150 mg PO BID 02/06/20 Rosuvastatin Calcium [Crestor] 10 mg PO DAILY #30 tablet 02/09/20 lamoTRIgine [Lamictal] 150 mg PO BID 30 Days #60 tab 02/09/20 levETIRAcetam [Keppra*] 500 mg PO BID #60 tab 02/09/20 New Medications: clonazePAM [Klonopin] 0.5 mg PO BID PRN #30 tablet PRN Reason: Anxiety Patient Discharge Instructions: OK TO DC IV AND DC HOME. FOLLOW-UP WITH PRIMARY CARE PROVIDER IN 1-2 WEEKS. FOLLOW-UP WITH NEUROLOGY IN 1-2 WEEKS. RETURN TO THE ER IF SYMPTOMS WORSENS. CALL DR. DIAZ AT [phone] IF ANY QUESTIONS REGARDING HOSPITAL STAY. PLEASE CALL THE FLOOR AT [phone] IF ANY MEDICATION OR NURSING QUESTIONS. Diet: Regular Activity: Fall precautions Followup: Del Strong MD [ACTIVE - CAN ADMIT] - 1-2 Weeks Carmelo Mathew MD [ACTIVE - CAN ADMIT] - 1-2 Weeks Time spent managing pt's care (in minutes): 20
[2020-02-06 20:57] VITALS: BP 156/64; TEMP 97
[2020-02-06] MEDS ORDERED: ATORVASTATIN 10 MG TAB PO SCH (21:00)
[2020-02-06] MEDS ORDERED: lamoTRIgine 150 MG TAB PO SCH (21:00)
--- NOTE | 2020-02-06 21:26 | CON ---
Date of Consultation: 02/06/2020 Time: 1630. Reason: Possible seizure. History: A 74-year-old lady with history of seizures. Normally, she does reasonably well on Lamicta l 150 mg twice daily. She has had issues with ataxia and sedation at higher doses and for a time she was on levetiracetam and lamotrigine together, but similar issues ataxia and sedation. She came to the hospital yesterday with possible seizure. She just recalls that she was walking and her legs tricia t out from under her. While in the emergency department, she had several episodes of rhythmic jerkin g. She was given some Keppra, those improved, came to the floor and had a few more episodes of shaki ng, although they are a little unusual and that they will florencio when an examiner lifted her leg. CT is unremarkable. EEG is unremarkable. She is well back to baseline now. Consultation was requested . Past Medical History: Diabetes, hypothyroidism, seizures, hyperlipidemia, prior TIA. Standard Medications: Zoloft, Protonix, aspirin, Synthroid, gabapentin, Lipitor, Lamictal, and metfo rmin. Allergies: PHENOBARBITAL, IODINE, MACROBID. Social History: Does not smoke. Normally independent with activities of daily. Family History: Noncontributory. Review of Systems: General: Generally healthy. Eyes: Negative. Ears, nose, throat: Negative. Cardiovascular: Hyperlipidemia. Pulmonary: Negative. GI: Negative. : Negative. Musculoskeletal: Negative. Neurologic: As noted. Psychiatric: Negative. Endocrine: Negative. Hematologic: Negative. Physical Examination: Vital signs: 97.4, 70, 16, 139/65. General: She is a pleasant lady sitting in bed, in no distress. Awake, alert, oriented to time, per son, place, and situation. Neurologic: Pupils reactive. Ocular motion full. Visual correa full. Facial strength and sensatio n are normal. Tongue protrudes evenly. Soft palate elevates symmetrically bilaterally. Extremity s trength full. Sensation decreased symmetrically distally. Reflexes trace. Toes are downgoing. Cer ebellar exam demonstrates no ataxia. Gait slightly unsteady, but she can ambulate without any assist lul devices. Impression: Complex partial seizure, questionable breakthrough seizure. Recommendations: EEG is normal. She has received some Keppra. I think it is reasonable to discharg e her on just 500 daily in addition to the Lamictal and if she continues to do well, we can taper zaira t down into off as outpatient. Her laboratory data other than elevation of her glucose is unrevealin g. Thank you for the consult. KASEY Voice ID: [id number] Report ID: [id number]
[2020-02-07] MEDS ORDERED: LEVOTHYROXINE SOD 0.125 MG TAB PO SCH (06:00)
--- NOTE | 2020-02-07 07:03 | EKG ---
Test Date: 2020-02-05 Test Time: 17:38:47 Supervisor [employer]: BROOKS MEASUREMENT RESULTS: Intervals: Rate: 114 HI: 174 QRSD: 90 QT: 346 QTc: 476 [place]: P: 47 HI: 174 QRS: -30 T: 60 INTERPRETIVE STATEMENTS: Sinus tachycardia Left axis deviation Abnormal ECG Compared to ECG 09/02/2019 14:08:42 Left-axis deviation now present Sinus rhythm no longer present Electronically Signed On 02-07-20 07:00:30 CDT by Valentín Carey
[2020-02-07] MEDS ORDERED: PANTOPRAZOLE 40MG TABLET PO SCH (07:30)
[2020-02-07] MEDS ORDERED: METFORMIN ER 500 MG TAB PO SCH (08:00)
[2020-02-07] MEDS ORDERED: SERTRALINE HCL 50 MG TAB PO SCH (09:00)
[2020-02-07] MEDS ORDERED: GABAPENTIN 300 MG CAP PO SCH (09:00)
[2020-02-07] MEDS ORDERED: ASPIRIN EC 81 MG TAB PO SCH (09:00)
--- NOTE | 2020-02-07 09:07 | ECHO ---
HEIGHT: 5 ft 3 in WEIGHT: 180 lb 9.6 oz DATE OF STUDY: 02/06/[address]: Prince Alden Arshad MD 2-DIMENSIONAL: YES M.MODE: YES DOPPLER: YES COLOR FLOW: YES TDS: PORTABLE: DEFINITY: BUBBLE STUDY: DIAGNOSIS: SYNCOPE CARDIAC HISTORY: CATHERIZATION: NO SURGERY: NO PROSTHETIC VALVE: NO PACEMAKER: NO MEASUREMENTS (cm) DIASTOLIC (NORMALS) SYSTOLIC (NORMALS) IVSd 1.3 (0.6-1.2) LA Diam 3.1 (1.9-4.0) LVEF 70% LVIDd 2.9 (3.5-5.7) LVIDs 1.8 (2.0-3.5) %FS 38% LVPWd 0.9 (0.6-1.2) Ao Diam 2.6 (2.0-3.7) 2 DIMENSIONAL ASSESSMENT: RIGHT ATRIUM: NORMAL LEFT ATRIUM: NORMAL RIGHT VENTRICLE: NORMAL LEFT VENTRICLE: NORMAL TRICUSPID VALVE: NORMAL MITRAL VALVE: NORMAL PULMONIC VALVE: NORMAL AORTIC VALVE: SCLEROSIS PERICARDIAL EFFUSION: NONE AORTIC ROOT: NORMAL LEFT VENTRICULAR WALL MOTION: NORMAL DOPPLER/COLOR FLOW: MILD TRICUSPID REGURGITATION NORMAL RIGHT VENTRICULAR SYSTOLIC PRESSURE. COMMENTS: NORMAL LEFT VENTRICULAR SIZE AND FUNCTION. MILD TRICUSPID REGURGITATION. NORMAL RIGHT VENTRICULAR SYSTOLIC PRESSURE. AORTIC SCLEROSIS - NO STENOSIS. TECHNOLOGIST: MILAN TABOR
--- NOTE | 2020-02-07 10:04 | EEG ---
CHART: [id number] TEST ID#: [id number] DATE OF STUDY: 02/06/2020 THE EEG WAS RECORDED PORTABLE IN THE PATIENT'S ROOM ON A 17 CHANNEL MACHINE. ELECTRODES WERE APPLIED IN THE USUAL MANNER USING THE INTERNATIONAL 10-20 SYSTEM. THE WAKING BACKGROUND RHYTHM IN THIS RECORD CONSISTS OF FAIRLY WELL DEVELOPED AND FAIRLY WELL ORGANIZED WAVES OF 10 HZ., MAXIMAL IN THE POSTERIOR HEAD REGIONS WHICH ATTENUATE NORMALLY WITH EYE OPENING. IN DROWSINESS THE BACKGROUND DROPS TO 9 HZ. THERE ARE NO FOCAL OR LATERALIZING FEATURES. NO EPILEPTIFORM ACTIVITY APPEARS. SLEEP DID NOT OCCUR. HYPERVENTILATION WAS NOT PERFORMED. PHOTIC STIMULATION PRODUCED GOOD DRIVING BILATERALLY. IMPRESSION: NORMAL EEG FOR THE AGE OF THE PATIENT IN WAKE AND DROWSINESS.
== END 2020-02-06 20:40 | disposition home health service (06) ==
LOC: ER 17:21 → ERHOLD 19:27 → 2ND 19:56
PROVIDERS: ADMIT Internal Medicine; ATTEND Hospitalist
DX: G40.89 Other seizures (principal); I10 Essential (primary) hypertension; E11.9 Type 2 diabetes mellitus without complications; E78.5 Hyperlipidemia, unspecified; E03.9 Hypothyroidism, unspecified; Z86.73 Personal history of transient ischemic attack (TIA), and cerebral infarction without residual deficits
CPT/HCPCS: 96365; 96361; 93005; 93306; 95819; 87088; 85025 ×2; 87086; 80048; 36415; 86308; 85610; 82947 ×2; 85730; 84443; 84439; 80053; 84145; 70450; 99285; J1953 ×2; J7030 ×3; G0378 ×3; 81003; 81015

== ENCOUNTER 2020-02-07 13:26 | Observation (INO) | payer MEDICARE ==
--- NOTE | 2020-02-07 15:11 | RAD REPORT ---
EXAM DESCRIPTION: CT - Head Brain Wo Cont - 02/07/2020 3:06 pm CLINICAL HISTORY: Confused;Syncope Headache, drowsiness COMPARISON: Head Brain Wo Cont dated 02/05/2020; Head Brain Wo Cont dated 05/24/2017 TECHNIQUE: All CT scans are performed using dose optimization technique as appropriate and may inclu de automated exposure control or mA/KV adjustment according to patient size. FINDINGS: No intracranial hemorrhage, hydrocephalus or extra-axial fluid collection.Mild generalized brain atrophy.No areas of brain edema or evidence of midline shift. The paranasal sinuses and mastoids are clear. The calvarium is intact. IMPRESSION: No acute intracranial abnormality.
[2020-02-07 15:17] LABS: Absolute Lymphocytes (CBC) 2.5 K/uL (0.7-4.9); Basophils % 0.9 % (0-1.3); Hematocrit 42.2 % (36.0-45.0); Lymphocytes % 25.2 % (15.3-44.8); MPV 7.5 fL (7.6-11.3); RBC Red Blood Cell Count 4.78 M/uL (3.86-4.86)
[2020-02-07 15:19] LABS: Protime INR 1.03
[2020-02-07 15:52] LABS: ALT/SGPT 18 U/L (12-78); Albumin 3.3 g/dL (3.4-5.0); Alkaline Phosphatase 89 U/L (45-117); BUN Blood Urea Nitrogen 10 mg/dL (7-18); Bicarbonate 26 mmol/L (21-32); Bilirubin Direct < 0.1 mg/dL (0-0.2); Bilirubin Total 0.4 mg/dL (0.2-1.0); Glucose Level 192 mg/dL (74-106); NT PRO-BNP 229 pg/mL (<125); Protein, Total 7.9 g/dL (6.4-8.2); Sodium Level 140 mmol/L (136-145); T3 Free 2.36 pg/mL (2.18-3.98); Troponin (Emerg Dept Use Only) < 0.02 ng/mL (0.0-0.045)
[2020-02-07 15:53] LABS: AST/SGOT 25 U/L (15-37); Potassium 4.2 mmol/L (3.5-5.1)
--- NOTE | 2020-02-07 16:04 | RAD REPORT ---
EXAM DESCRIPTION: RAD - Chest Single View - 02/07/2020 3:15 pm CLINICAL HISTORY: Syncope Chest pain. COMPARISON: Chest Pa And Lat (2 Views) dated 10/28/2018; Chest Single View dated 05/24/2017; Chest Singl e View dated 05/13/2017; Chest Single View dated 04/30/2017 FINDINGS: Portable technique limits examination quality. The lungs are grossly clear. The heart is normal in size. No displaced fractures. IMPRESSION: No acute intrathoracic process suspected.
--- NOTE | 2020-02-07 16:45 | ER ---
Nurse's Notes [facility] Name: Iman Saunders Age: 74 yrs Sex: Female : 1945 Arrival Date: 02/07/2020 Time: 13:31 Bed 7 Private MD: Diagnosis: Syncope and collapse;Weakness Presentation: 02/06 13:31 Chief complaint: Patient states: generalized weakness x 5 days. Denies fever, cough ss and/or SOB. Pt was recently admitted to the hospital seizures and discharged last Thursday. Coronavirus screen: Proceed with normal triage. Patient denies a cough. Patient denies shortness of breath or difficulty breathing. Patient denies measured and/or subjective temperature greater than 100.4F prior to today's visit. Patient denies travel on a cruise ship or to a country the [facility] currently lists as an affected area. Patient denies contact with known and/or suspected case of COVID-19. Ebola Screen: Patient denies exposure to infectious person. Patient denies travel to an Ebola-affected area in the 21 days before illness onset. Initial Sepsis Screen: Does the patient meet any 2 criteria? HR > 90 bpm. No. Patient's initial sepsis screen is negative. Does the patient have a suspected source of infection? No. Patient's initial sepsis screen is negative. Risk Assessment: Do you want to hurt yourself or someone else? Patient reports no desire to harm self or others. Onset of symptoms was February 02, 2020. 13:31 Method Of Arrival: EMS: [facility] ss 13:31 Acuity: [place] 3 ss Historical: - Allergies: 13:35 "pack per day injection"; ss 13:35 Iodine; ss 13:35 Macrobid; ss 13:35 Nitrofurantoin Macrocrystal; ss 13:35 Phenobarbital; ss 13:35 shrimp; ss - PMHx: 13:35 CVA; Diabetes - NIDDM; High Cholesterol; Hypothyroidism; Seizures; ss - Immunization history:: Adult Immunizations up to date. - Social history:: Smoking status: Patient denies any tobacco usage or history of. Screenin:02 Abuse screen: Denies threats or abuse. Denies injuries from another. Nutritional ss screening: No deficits noted. Tuberculosis screening: Never had TB. Fall Risk Fall in past 12 months (25 points). Secondary diagnosis (15 points) weakness orthostatic +. IV access (20 points). Ambulatory Aid- None/Bed Rest/Nurse Assist (0 pts). Gait- Normal/Bed Rest/Wheelchair (0 pts) Mental Status- Oriented to own ability (0 pts). Assessment: 13:45 General: Appears in no apparent distress. comfortable, Behavior is calm, cooperative. ss General: Reports Generalized weakness x 5 days. Pain: Denies pain. Neuro: Level of Consciousness is awake, alert, obeys commands, Oriented to person, place, time, situation, Speech is normal, Facial symmetry appears normal, Pupils are PERRLA. Neuro: Reports. Cardiovascular: Heart tones S1 S2 present Capillary refill < 3 seconds is brisk in bilateral fingers Patient's skin is warm and dry. Respiratory: Airway is patent Respiratory effort is even, unlabored, Respiratory pattern is regular, symmetrical. GI: Patient currently denies abdominal pain, diarrhea, nausea, vomiting. : No signs and/or symptoms were reported regarding the genitourinary system. EENT: Nares are clear Oral mucosa is moist. Throat is clear. Derm: Skin is intact, is healthy with good turgor, Skin is dry, Skin is pink, warm \\T\\ dry. normal. Musculoskeletal: Circulation, motion, and sensation intact. Range of motion: intact in all extremities, Swelling absent. 15:26 Reassessment: Unable to complete orthostatics, pt became very unsteady when standing, ss legs began to shake, pt assisted back to bed. Dr. Mcarthur notified. 16:30 Reassessment: Patient appears in no apparent distress at this time. Patient and/or ss family updated on plan of care and expected duration. Pain level reassessed. awaiting room assignment. Pt aware of admission. Dr. Cordero at bedside. 18:04 Reassessment: Patient appears in no apparent distress at this time. Patient and/or ss family updated on plan of care and expected duration. Pain level reassessed. Patient is alert, oriented x 3, equal unlabored respirations, skin warm/dry/pink. diet tray given. Report given to KATY Hammonds. Vital Signs: 13:31 BP 142 / 64; Pulse 98; Resp 17; Temp 97.7(TE); Pulse Ox 95% on R/A; Weight 81.65 kg; ss Height 5 ft. 3 in. (160.02 cm); Pain 0/10; 15:05 Pulse 89; Resp 18; Pulse Ox 95% ; sv 15:16 BP 155 / 82 Supine; Pulse 89; ss 15:24 BP 172 / 89 Sitting; Pulse 98; ss 16:21 BP 149 / 75; Pulse 88; Resp 18; Pulse Ox 95% ; sv 16:45 BP 141 / 75; Pulse 90; Resp 18; Pulse Ox 96% ; sv 13:31 Body Mass Index 31.89 (81.65 kg, 160.02 cm) ED Course: 13:31 Patient arrived in ED. ss 13:31 Shonda Bravo, RN is Primary Nurse. ss 13:35 Triage completed. ss 13:35 Arm band placed on right wrist. ss 14:00 Rodger Mcarthur MD is Attending Physician. kdr 14:15 Maintain EMS IV. Dressing intact. Good blood return noted. Site clean \\T\\ dry. Gauge \\T\\ ss site: 20 gauge in R AC. 14:57 CT Head Brain wo Cont In Process Unspecified. EDMS 15:16 XRAY Chest (1 view) In Process Unspecified. EDMS 16:02 Patient has correct armband on for positive identification. Bed in low position. Call light in reach. 16:44 Ronald Cordero MD is Hospitalizing Provider. kdr 17:59 Diet: Patient given a heart healthy meal tray. mh5 18:05 No provider procedures requiring assistance completed. Patient admitted, IV remains in ss place. Administered Medications: No medications were administered Outcome: 16:45 Decision to Hospitalize by Provider. kdr 18:05 Instructed on the need for admit. ss 18:09 Patient left the ED. ss 18:09 Admitted to Tele accompanied by Correlec, via wheelchair, room 215, Report called to christian Hammonds RN 18:09 Condition: good Signatures: Dispatcher [employer] EDMS Tiffany Leonardo RN RN Rodger Mcarthur MD MD kdr Shonda Bravo RN RN ss Martinez, Maria 5
--- NOTE | 2020-02-07 16:46 | EDPHYS ---
Physician Documentation [facility] Name: Iman Saunders Age: 74 yrs Sex: Female : 1945 Arrival Date: 02/07/2020 Time: 13:31 Bed 7 Private MD: ED Physician Rodger Mcarthur HPI: 02/06 14:34 This 74 yrs old Female presents to ER via EMS with complaints of General kdr Weakness \\T\\ syncope. 14:34 The patient has experienced syncope, became unresponsive, collapsed, lost kdr consciousness. Onset: The symptoms/episode began/occurred suddenly, just prior to arrival. Duration: This was a single episode, that lasted an unknown period of time. Context: the episode(s) was witnessed, by a bystander, by a friend, occurred at home, occurred while the patient was standing, Just prior to the episode the patient experienced weakness. Associated injury: The patient did not suffer any apparent associated injury. Associated signs and symptoms: The patient has no apparent associated signs or symptoms. Current symptoms: Currently, the patient is not experiencing any symptoms. The patient has experienced similar episodes in the past, a few times. The patient has not recently seen a physician. The patient has had prior syncopal episodes and two months ago was referred to Dr. bailey for further evaluation by Dr. Strong. According to the patient, as yet , despite numerous tests, no specific problem or diagnosis has been made. Historical: - Allergies: 13:35 "pack per day injection"; ss 13:35 Iodine; ss 13:35 Macrobid; ss 13:35 Nitrofurantoin Macrocrystal; ss 13:35 Phenobarbital; ss 13:35 shrimp; ss - PMHx: 13:35 CVA; Diabetes - NIDDM; High Cholesterol; Hypothyroidism; Seizures; ss - Immunization history:: Adult Immunizations up to date. - Social history:: Smoking status: Patient denies any tobacco usage or history of. ROS: 14:34 Constitutional: Negative for fever, chills, and weight loss, Eyes: Negative for injury, kdr pain, redness, and discharge, ENT: Negative for injury, pain, and discharge, Neck: Negative for injury, pain, and swelling, Cardiovascular: Negative for chest pain, palpitations, and edema, Respiratory: Negative for shortness of breath, cough, wheezing, and pleuritic chest pain, Abdomen/GI: Negative for abdominal pain, nausea, vomiting, diarrhea, and constipation, Back: Negative for injury and pain, : Negative for injury, bleeding, discharge, and swelling, MS/Extremity: Negative for injury and deformity, Skin: Negative for injury, rash, and discoloration, Psych: Negative for depression, anxiety, suicide ideation, homicidal ideation, and hallucinations, Allergy/Immunology: Negative for hives, rash, and allergies, Endocrine: Negative for neck swelling, polydipsia, polyuria, polyphagia, and marked weight changes, Hematologic/Lymphatic: Negative for swollen nodes, abnormal bleeding, and unusual bruising. 14:34 Neuro: Positive for altered mental status, dizziness, loss of consciousness, syncope. Exam: 14:34 Constitutional: This is a well developed, well nourished patient who is awake, alert, kdr and in no acute distress. Head/Face: Normocephalic, atraumatic. Eyes: Pupils equal round and reactive to light, extra-ocular motions intact. Lids and lashes normal. Conjunctiva and sclera are non-icteric and not injected. Cornea within normal limits. Periorbital areas with no swelling, redness, or edema. Neck: Trachea midline, no thyromegaly or masses palpated, and no cervical lymphadenopathy. Supple, full range of motion without nuchal rigidity, or vertebral point tenderness. No Meningismus. Chest/axilla: Normal chest wall appearance and motion. Nontender with no deformity. No lesions are appreciated. Cardiovascular: Regular rate and rhythm with a normal S1 and S2. No gallops, murmurs, or rubs. Normal PMI, no JVD. No pulse deficits. Respiratory: Lungs have equal breath sounds bilaterally, clear to auscultation and percussion. No rales, rhonchi or wheezes noted. No increased work of breathing, no retractions or nasal flaring. Abdomen/GI: Soft, non-tender, with normal bowel sounds. No distension or tympany. No guarding or rebound. No evidence of tenderness throughout. Back: No spinal tenderness. No costovertebral tenderness. Full range of motion. Skin: Warm, dry with normal turgor. Normal color with no rashes, no lesions, and no evidence of cellulitis. MS/ Extremity: Pulses equal, no cyanosis. Neurovascular intact. Full, normal range of motion. Neuro: Awake and alert, GCS 15, oriented to person, place, time, and situation. Cranial nerves II-XII grossly intact. Motor strength 5/5 in all extremities. Sensory grossly intact. Cerebellar exam normal. Normal gait. Psych: Awake, alert, with orientation to person, place and time. Behavior, mood, and affect are within normal limits. Vital Signs: 13:31 BP 142 / 64; Pulse 98; Resp 17; Temp 97.7(TE); Pulse Ox 95% on R/A; Weight 81.65 kg; ss Height 5 ft. 3 in. (160.02 cm); Pain 0/10; 15:05 Pulse 89; Resp 18; Pulse Ox 95% ; sv 15:16 BP 155 / 82 Supine; Pulse 89; ss 15:24 BP 172 / 89 Sitting; Pulse 98; ss 16:21 BP 149 / 75; Pulse 88; Resp 18; Pulse Ox 95% ; sv 16:45 BP 141 / 75; Pulse 90; Resp 18; Pulse Ox 96% ; sv 13:31 Body Mass Index 31.89 (81.65 kg, 160.02 cm) ss MDM: 14:34 Data reviewed: vital signs, nurses notes, lab test result(s), EKG, radiologic studies. [facility] 16:45 Patient medically screened. [facility] 02/06 14:31 Order name: Basic Metabolic Panel [facility] 02/06 14:31 Order name: CBC with Diff; Complete Time: 15:22 [facility] 02/06 14:31 Order name: LFT's [facility] 02/06 14:31 Order name: Magnesium [facility] 02/06 14:31 Order name: NT PRO-BNP [facility] 02/06 14:31 Order name: PT-INR [facility] 02/06 14:31 Order name: Troponin (emerg Dept Use Only) [facility] 02/06 14:31 Order name: TSH [facility] 02/06 14:31 Order name: T3 Free [facility] 02/06 14:31 Order name: T4 Free [facility] 02/06 15:54 Order name: T4 Free [facility] 02/06 17:18 Order name: CBC with Automated Diff [facility] 02/06 17:18 Order name: CBC with Automated Diff [facility] 02/06 17:18 Order name: Comprehensive Metabolic Panel [facility] 02/06 14:31 Order name: XRAY Chest (1 view) [facility] 02/06 14:31 Order name: EKG; Complete Time: 14:32 [facility] 02/06 14:31 Order name: Cardiac monitoring; Complete Time: 14:44 [facility] 02/06 14:31 Order name: EKG - Nurse/Tech; Complete Time: 15:08 [facility] 02/06 14:31 Order name: IV Saline Lock; Complete Time: 15:08 [facility] 02/06 14:31 Order name: Labs collected and sent; Complete Time: 15:08 [facility] 02/06 14:31 Order name: O2 Per Protocol; Complete Time: 15:08 [facility] 02/06 14:31 Order name: O2 Sat Monitoring; Complete Time: 15:08 [facility] 02/06 14:31 Order name: CT Head Brain wo Cont; Complete Time: 15:22 [facility] 02/06 17:18 Order name: CONS Pharmacy Consult [facility] 02/06 17:18 Order name: CONS Physician Consult [facility] 02/06 17:18 Order name: Comprehensive Metabolic Panel [facility] 02/06 17:20 Order name: Consistent Carb (ADA) 2000 Arnie [facility] 02/06 17:21 Order name: CONS Pharmacy Consult [facility] 02/06 17:23 Order name: Prolactin [facility] 02/06 14:32 Order name: Orthostatic Blood Pressure; Complete Time: 15:26 kdr Administered Medications: No medications were administered Disposition: 02/07/20 16:45 Hospitalization ordered by Ronald Cordero for Observation. Preliminary diagnosis are Syncope and collapse, Weakness. - Bed requested for Telemetry/MedSurg (observation). - Status is Observation. ss - Condition is Fair. - Problem is an acute exacerbation. - Symptoms have improved. Signatures: Dispatcher [employer] [facility] Lizbeth Cervantes Kevin, MD MD [facility] Shonda Bravo RN RN ss Corrections: (The following items were deleted from the chart) 17:20 17:18 Regular ordered. [facility] 17:53 16:45 Hospitalization Ordered by Ronald Cordero MD for Observation. Preliminary bd diagnosis is Syncope and collapse; Weakness. Bed requested for Telemetry/MedSurg (observation). Status is Observation. Condition is Fair. Problem is an acute exacerbation. Symptoms have improved. kdr 18:09 17:53 02/07/2020 16:45 Hospitalization Ordered by Ronald Cordero MD for Observation. ss Preliminary diagnosis is Syncope and collapse; Weakness. Bed requested for Telemetry/MedSurg (observation). Status is Observation. Condition is Fair. Problem is an acute exacerbation. Symptoms have improved. bd
--- NOTE | 2020-02-07 17:23 | P.HP ---
Certification for Inpatient Patient admitted to: Observation With expected LOS: <2 Midnights Practitioner: I am a practitioner with admitting privileges, knowledge of patient current condition, hospital course, and medical plan of care. Services: Services provided to patient in accordance with Admission requirements found in Title 42 Section 412.3 of the Code of Federal Regulations Patient History Date of Service: 02/07/20 Reason for admission: Syncope History of Present Illness: Patient is 74 years of age admitted with recurrent syncope attacked apparently she was sitting in past or does not recall the events prior to for after the syncope she was sitting down did not injure herself denies any weakness of her extremities patient was just recently discharged with syncope any seeing a doctor Suzi an outpatient patient has not taken Keppra/denies any cardiopulmonary symptoms no chest pain tachycardia no neurological weakness Allergies nitrofurantoin [From Macrobid] Allergy (Severe, Verified 02/05/20 20:59) Hives shrimp Allergy (Severe, Verified 02/05/20 20:59) Hives phenobarbital Adverse Reaction (Severe, Verified 02/05/20 20:59) disorientation Iodine Allergy (Intermediate, Uncoded 05/13/17 16:20) Hives/Rash IV contrast Allergy (Intermediate, Uncoded 04/30/17 20:47) Hives "pack Allergy (Uncoded 05/24/17 15:50) Unknown Nitro Allergy (Uncoded 05/24/17 15:50) Unknown Home Medications: Aspirin [Aspirin EC 81 MG] 81 mg PO DAILY 02/06/20 Atorvastatin Calcium [Lipitor*] 10 mg PO BEDTIME 02/06/20 Gabapentin 300 mg PO DAILY 02/06/20 Levothyroxine [Synthroid*] 125 mcg PO [id number] 02/06/20 Metformin HCl [Metformin HCl ER] 500 mg PO BID 02/06/20 Pantoprazole [Protonix Tab*] 40 mg PO DAILY 02/06/20 Sertraline [Zoloft*] 50 mg PO DAILY 02/06/20 clonazePAM [Klonopin] 0.5 mg PO BID PRN #30 tablet 02/06/20 lamoTRIgine [Lamotrigine] 150 mg PO BID 02/06/20 levETIRAcetam [Keppra Tab] 500 mg PO DAILY 30 Days #30 tab 02/06/20 - Past Medical/Surgical History Diabetic: Yes -: Hypertension -: Seizure disorder -: History of CVA - R side weakness -: Hyperlipidemia -: Hypothyroidism -: Hysterectomy -: Appendectomy -: Bladder surgery -: dewayne cataract sx Psychosocial/ Personal History: She is a . She has 1 child. She does not work. - Family History Father -: Cancer Mother -: Heart disease, Diabetes - Social History Alcohol use: No CD- Drugs: No Caffeine use: Yes Review of Systems 10-point ROS is otherwise unremarkable Physical Examination - Vital Signs Temperature: 97.7 F Blood Pressure: 142/64 Pulse: 98 Respirations: 14 Pulse Ox (%): 95 - Physical Exam General: Alert, Oriented x3 HEENT: Atraumatic Neck: Supple Respiratory: Clear to auscultation bilaterally, Normal air movement Cardiovascular: No edema, Normal pulses, Regular rate/rhythm Gastrointestinal: Normal bowel sounds, Soft and benign Musculoskeletal: No clubbing, No swelling Integumentary: No rashes, No breakdown Neurological: Normal speech, Normal strength at 5/5 x4 extr, Cranial nerves 3-12 intact, Normal reflexes 2+ - Studies Laboratory Data (last 24 hrs) 02/07/20 14:45: PT 12.2, INR 1.03 02/07/20 14:45: WBC 9.9 D, Hgb 13.8, Hct 42.2, Plt Count 355 02/07/20 14:45: Sodium 140, Potassium 4.2, BUN 10, Creatinine 1.24, Glucose 192 H, Magnesium 2.0, Total Bilirubin 0.4, AST 25, ALT 18, Alkaline Phosphatase 89 Assessment and Plan - Problems (Diagnosis) (1) Syncope Current Visit: Yes Status: Acute Plan: Patient is 74 years of age was recently discharged admitted yet again with another syncopal episode discuss with Dr. Mathew/Stephen was ordered recently she has had MRIs before the been normal CT scan of the head recently is negative tsh is mildly elevated otherwise CBCs unremarkable chest x-rays clear I have discussed with the neurologist serum prolactin level ordered continue with Ivan Maria Qualifiers: Syncope type: unspecified Qualified Code(s): R55 - Syncope and collapse - Advance Directives Does patient have a Living Will: No Does patient have a Durable POA for Healthcare: No
[2020-02-07 18:45] VITALS: BMI 31.8
--- NOTE | 2020-02-07 18:57 | EKG ---
Test Date: 2020-02-07 Test Time: 14:20:49 [employer] Electrician: BRANDY MEASUREMENT RESULTS: Intervals: Rate: 92 AL: 172 QRSD: 84 QT: 386 QTc: 477 [place]burst: P: 40 AL: 172 QRS: -26 T: 47 INTERPRETIVE STATEMENTS: Normal sinus rhythm Possible Anterior infarct, age undetermined Abnormal ECG Compared to ECG 02/05/2020 17:38:47 Myocardial infarct finding now present Sinus tachycardia no longer present Left-axis deviation no longer present Electronically Signed On 02-07-20 18:56:07 CDT by Valentín Carey
[2020-02-07] MEDS: lamoTRIgine 150 MG TAB PO SCH (21:00)
[2020-02-07] MEDS: ATORVASTATIN 10 MG TAB PO SCH (21:29)
[2020-02-07] MEDS: levETIRAcetam 500 MG TAB PO SCH (21:29)
[2020-02-07] MEDS ORDERED: LORazepam 2 MG/ML VIAL IV ONE (22:44)
[2020-02-07] MEDS ORDERED: FENTANYL CITR 100 MCG/2 ML IV ONE (22:44)
[2020-02-08 05:43] LABS: Absolute Lymphocytes (CBC) 3.4 K/uL (0.7-4.9); Basophils % 0.9 % (0-1.3); Hematocrit 39.2 % (36.0-45.0); Lymphocytes % 38.5 % (15.3-44.8); MPV 7.3 fL (7.6-11.3); RBC Red Blood Cell Count 4.48 M/uL (3.86-4.86)
[2020-02-08 06:08] LABS: Albumin 3.1 g/dL (3.4-5.0); Bilirubin Total 0.6 mg/dL (0.2-1.0); Potassium 3.7 mmol/L (3.5-5.1); Protein, Total 7.2 g/dL (6.4-8.2)
[2020-02-08] MEDS ORDERED: GLUCAGON 1 MG/VIAL IM PRN (07:40)
[2020-02-08] MEDS ORDERED: D50W 25 GM/50 ML SYRINGE/VIAL IV PRN (07:40)
[2020-02-08] MEDS: lamoTRIgine 150 MG TAB PO SCH ×2 (07:55→21:01)
[2020-02-08] MEDS: SERTRALINE HCL 50 MG TAB PO SCH ×2 (07:55→07:56)
[2020-02-08] MEDS: levETIRAcetam 500 MG TAB PO SCH ×2 (07:55→21:01)
[2020-02-08] MEDS: ASPIRIN EC 81 MG TAB PO SCH (07:55)
[2020-02-08] MEDS: PANTOPRAZOLE 40MG TABLET PO SCH (07:58)
[2020-02-08] MEDS ORDERED: METFORMIN ER 500 MG TAB PO SCH (08:00)
[2020-02-08] MEDS ORDERED: levETIRAcetam 500 MG TAB PO SCH (09:00)
--- NOTE | 2020-02-08 09:03 | P.PN ---
Subjective Date of Service: 02/08/20 Patient clinically is doing well. Patient has a history of recent admission but was diagnosed with pseudoseizures. Patient came in with syncope. Patient has had multiple cardiac and neurologic testing performed recently. At this time will go ahead and per proceed with MRI stroke protocol. If this is negative then anticipate discharge home. Review of Systems 10-point ROS is otherwise unremarkable Physical Examination - Vital Signs Temperature: 97.5 F Blood Pressure: 133/59 Pulse: 72 Respirations: 18 Pulse Ox (%): 94 - Physical Exam General: Alert, In no apparent distress, Oriented x3 Neck: Supple, JVD not distended Respiratory: Clear to auscultation bilaterally, Normal air movement Cardiovascular: Regular rate/rhythm, Normal S1 S2, No murmurs Gastrointestinal: Normal bowel sounds, Soft and benign, No tenderness Musculoskeletal: No clubbing, No swelling, No tenderness Neurological: Normal speech, Normal tone - Studies Laboratory Data (last 24 hrs) 02/07/20 14:45: PT 12.2, INR 1.03 02/07/20 14:45: WBC 9.9 D, Hgb 13.8, Hct 42.2, Plt Count 355 02/07/20 14:45: Sodium 140, Potassium 4.2, BUN 10, Creatinine 1.24, Glucose 192 H, Magnesium 2.0, Total Bilirubin 0.4, AST 25, ALT 18, Alkaline Phosphatase 89 Medications List Reviewed: Yes Assessment & Plan - Problems (Diagnosis) (1) Syncope Current Visit: Yes Status: Acute (2) History of pseudoseizure Current Visit: Yes Status: Acute (3) History of TIA (transient ischemic attack) Current Visit: No Status: Chronic (4) Hyperlipidemia Onset Date: 05/01/17 Current Visit: No Status: Chronic Qualifiers: (5) Hypertension Onset Date: 04/24/17 Current Visit: No Status: Chronic Qualifiers: (6) Hypothyroidism Onset Date: 04/24/17 Current Visit: No Status: Chronic Qualifiers: (7) Nephrolithiasis Current Visit: No Status: Chronic - Plan Plan: 1. MRI stroke protocol 2. Continue with additional home medications 3. Patient with history of pseudoseizures; patient with a history of anxiety and will give a anxiolytics as needed 4. Strict blood pressure and blood sugar control 5. Seizure precautions 6. Neurology consultation has been obtained as well. Possible discharge home if workup is negative then neurology is agreeable. Anticipate discharge probably this evening 7. GI and DVT prophylaxis Discharge Plan: Home Plan to discharge in: 24 Hours - Advance Directives Does patient have a Living Will: No Does patient have a Durable POA for Healthcare: No - Code Status/Comfort Care Code Status Assessed: Yes Code Status: Full Code Critical Care: No Time Spent Managing PTS Care (In Minutes): 30
[2020-02-08] MEDS: INSULIN -REGULAR HUMAN 50 UNIT/0.5 ML ML SQ SCH ×3 (11:30→21:00)
--- NOTE | 2020-02-08 13:15 | RAD REPORT ---
EXAM DESCRIPTION: MRI - Brain W/Wo Cont - 02/08/2020 12:50 pm CLINICAL HISTORY: Syncope COMPARISON: February 07, [address] TECHNIQUE: Axial, sagittal, and coronal magnetic images of the brain were obtained. 18 cc MultiHance administered intravenously FINDINGS: No significant abnormal signal within the brain. Hippocampal gyri normal caliber and signa l The ventricles are normal in caliber. Diffusion-weighted/ ADC mapping sequences do not demonstrate evidence of an acute infarction. No abnormal enhancement within the brain is seen. An extra-axial fluid collection is not noted. Fluid within the sinuses/mastoids is not seen IMPRESSION: No acute abnormality displayed
--- NOTE | 2020-02-08 13:22 | RAD REPORT ---
EXAM DESCRIPTION: MRI - MRA Neck W/Wo Cont - 02/08/2020 12:50 pm CLINICAL HISTORY: Syncope COMPARISON: None. TECHNIQUE: Magnetic resonance angiogram of the neck was performed. 18 cc MultiHance was administered intravenously. 3D MIPS reconstruction performed FINDINGS: Plaque is present within the left carotid bulb resulting in an approximately 45% stenosis Right and left common carotid and right internal carotid arteries do not demonstrate a significant st enosis. The vertebral arteries are codominant without visualization of an abnormality. IMPRESSION: Plaque within the left carotid bulb resulting in an approximately 45% stenosis NASCET criteria used. Mild 0-49% stenosis Moderate 50-69% stenosis Severe 70-99% stenosis
--- NOTE | 2020-02-08 13:24 | RAD REPORT ---
EXAM DESCRIPTION: MRI - MRA Head Wo Cont - 02/08/2020 12:50 pm CLINICAL HISTORY: Syncope COMPARISON: None. TECHNIQUE: Magnetic resonance angiogram was performed. 3D MIPS reconstruction performed FINDINGS: The anterior cerebral, middle cerebral, posterior cerebral, distal internal carotid and ba silar arteries do not demonstrate a significant stenosis. An aneurysm is not displayed. IMPRESSION: Unremarkable MRA brain.
[2020-02-08] MEDS: LORazepam 2 MG/ML VIAL IV PRN ×2 (14:00→21:29)
[2020-02-08] MEDS ORDERED: LORazepam 2 MG/ML VIAL ONE (14:01)
--- NOTE | 2020-02-08 14:14 | P.PN ---
Subjective Date of Service: 02/08/20 Primary Care Provider: Neurology-Dr. Mathew Chief Complaint: Syncope Subjective: Other (I was called to evaluate the patient as she had a seizure. Patient was working with physical therapy when she start to have some weakness to the right lower extremity. Physical therapy mentioned that she would drag her right foot. They made it back to the room when she started to have shaking to her legs. This resolved. Then several min later she start to have inactive seizure. Patient given Ativan. Patient stable at this time. Patient is postictal but able to follow commands.) Physical Examination - Vital Signs Temperature: 97.5 F Blood Pressure: 133/59 Pulse: 72 Respirations: 18 Pulse Ox (%): 94 - Physical Exam General: Other (Increased fatigue. Patient is postictal. She is able to follow commands.) Neck: Supple Respiratory: Clear to auscultation bilaterally, Normal air movement Cardiovascular: Normal pulses, Regular rate/rhythm Gastrointestinal: Normal bowel sounds, No ascites, No tenderness Musculoskeletal: No tenderness, No warmth Neurological: Normal speech, Normal strength at 5/5 x4 extr, Normal tone - Studies Laboratory Data (last 24 hrs) 02/07/20 14:45: PT 12.2, INR 1.03 02/07/20 14:45: WBC 9.9 D, Hgb 13.8, Hct 42.2, Plt Count 355 02/07/20 14:45: Sodium 140, Potassium 4.2, BUN 10, Creatinine 1.24, Glucose 192 H, Magnesium 2.0, Total Bilirubin 0.4, AST 25, ALT 18, Alkaline Phosphatase 89 Medications List Reviewed: Yes Assessment & Plan Discharge Plan: Home Plan to discharge in: 48 Hours Physician Review Additional Text: Impression: Syncope secondary to seizure, uncontrolled, with history of seizure disorder Diabetes mellitus type 2 with hyperglycemia Chronic renal disease stage III with history of bilateral renal cyst Left carotid artery stenosis Depression with anxiety Plan: Syncope secondary to seizure, uncontrolled, with history of seizure disorder: Patient stable at this time. Will provide Ativan as needed. Case discussed at length with Neurology. Patient was given Lamictal and Keppra earlier in the day. Will give Keppra 500 mg IV now. Will also start IV fluids. Will continue to monitor closely. Seizure precaution in place. Patient is post ictal but appropriate at this time. Will continue to monitor closely. If seizures be come persistent will transfer patient to the ICU. MRI reviewed shows no acute stroke. MRA neck shows left carotid artery stenosis at 45%. Diabetes mellitus type 2 with hyperglycemia: Continue insulin siding scale. Will monitor Accu-Cheks. Chronic renal disease stage III with history of bilateral renal cyst: Will consult Nephrology to further evaluate. Will recheck renal ultrasound. Will provide IV fluids. Left carotid artery stenosis: MRA neck shows left carotid artery stenosis at 45%. Will check fasting lipid panel. Will discuss further with Neurology. Will check fasting lipid panel tomorrow. Depression with anxiety: Continue with medication. Critical care: 30 min including evaluation/treatment, discussion with Neurology, review of lab and radiology. Critical Care: Yes (30 min) Time Spent Managing Pts Care (In Minutes): 30
[2020-02-08] MEDS ORDERED: levETIRAcetam 500 MG in NA CHLORIDE 0.9% 100 ML IV ONE (14:15)
[2020-02-08] MEDS: NA CHLORIDE 0.9% 1,000 ML IV SCH (14:19)
[2020-02-08] MEDS ORDERED: TRAMADOL HCL 50 MG TAB PO PRN (15:09)
[2020-02-08] MEDS ORDERED: HYDROCODONE/APAP 7.5/325 MG TAB PO PRN (15:09)
--- NOTE | 2020-02-08 15:19 | RAD REPORT ---
EXAM DESCRIPTION: US - Renal Ultrasound-Complete - 02/08/2020 3:06 pm CLINICAL HISTORY: . Chronic renal disease COMPARISON: 2014 FINDINGS: The right kidney measures 10 cm with a normal echotexture. The left kidney measures 10 cm with a normal echotexture. Hydronephrosis is not seen. No gross abnormality of bladder IMPRESSION: Unremarkable renal ultrasound.
[2020-02-08] MEDS ORDERED: POTASSIUM CL SA 10 MEQ TAB PO ONE (16:00)
[2020-02-08 16:36] LABS: Uric Acid 4.5 mg/dL (2.6-6.0)
[2020-02-08] MEDS ORDERED: ENOXAPARIN 40 MG/0.4 ML SQ SCH (17:00)
[2020-02-08] MEDS: ATORVASTATIN 10 MG TAB PO SCH (21:01)
--- NOTE | 2020-02-08 22:51 | CON ---
Date of Consultation: 02/08/2020 Time: 1830. Reason For Consultation: Syncope, possible seizures. History: This is a lady who just left the hospital with possible seizures on the . She then pre sented back to the emergency department yesterday with an episode of syncope, unwitnessed. She has a history of seizures and is normally on Lamictal. She did receive some Keppra during the recent admi ssion and so we thought it was prudent that at least be continued at a low dose 500 mg, but pharmacy did not have it in stock, so she did not have it filled and did not take the medication when she left the hospital. In the emergency department, she was noted to be awake, lucid. No complaints, but fe lt prudent to at least observe her overnight, so she was admitted for observation. Brain MRI was obt ained, demonstrating no evidence of stroke or intracranial lesions. There is a 45% left carotid sten osis that is not hemodynamically significant. I recommended to continue the Keppra and increase to 5 00 b.i.d. She received some this morning. This afternoon while walking with therapy, she developed some transient shaking to the right leg, made it back to the room, and then developed some focal leandro ing to the right leg. Soon after, she had what has been described as a seizure. It is not well desc ribed by nursing staff on reviewing their notes, just described to her attending and then subsequentl y to myself as generalized shaking. She did receive some lorazepam and was noted to be drowsy after that. I recommended to just give her an extra 500 mg of Keppra IV and she has not had any further ep isodes. She is back to her baseline currently. Consultation was again requested. Past Medical History: Diabetes, hypothyroidism, hyperlipidemia. Routine Medications: Synthroid, Lamictal 150 twice daily, Zoloft, Protonix, metformin, Keppra. New Medicine: Gabapentin, atorvastatin, aspirin. Allergies: SHRIMP, IODINE, PHENOBARBITAL. Social History: Nonsmoker. Normally independent basic activities of daily living. Family History: Noncontributory. Review of Systems: General: Good health. Eyes: Negative. Ears, Nose, Throat: Negative. Cardiovascular: She has a questionable anterior infarct changes on EKG from yesterday at 1420. Pulmonary: Negative. GI: Negative. : Some renal insufficiency. Creatinine earlier this year, 1.4. Neurologic: As noted. Psychiatric: Negative. Endocrine: Negative. Hematologic: Negative. Physical Examination: Vital Signs: 97.9, 72, 18, 94. General: She is a pleasant lady lying in bed, in no distress. Awake, alert, oriented to time, perso n, place, and situation. Neurologic: Pupils reactive. Ocular motion full. Visual correa full. Facial strength and sensatio n are normal. Tongue protrudes evenly. Soft palate elevates symmetrically bilaterally. There is a questionable slight decreased to the right nasolabial fold at rest. Extremity strength full. Sensat ion intact. Reflexes 1/4. Toes are downgoing. Cerebellar exam demonstrates no ataxia. Impression: History of seizures, possible breakthrough seizure. Plan: She did not bite her tongue. She did have a tongue laceration, but she does have a questionab le slight decreased right nasolabial fold that is new, possibly a postictal phenomenon. EEG from Thu day was normal. Brain MRI is unremarkable. We will continue the Lamictal, check a level in the morn ing for baseline and continue the Keppra 500 twice daily, check a level in the morning as well. Thank you for the consult. We will continue to follow with you. She already has an appointment to s justino marlow for later on this month. EUGENIE/DEVI Voice ID: [id number] Report ID: [id number]
--- NOTE | 2020-02-09 03:02 | P.DS ---
Discharge Date: 02/09/20 Primary Care Provider: Neurology-Dr. Mathew Discharge Condition: GOOD Reason for Admission: Syncope Consultations: NEUROLOGY - Problems (1) Syncope Current Visit: Yes Status: Acute (2) History of pseudoseizure Current Visit: Yes Status: Acute (3) History of TIA (transient ischemic attack) Current Visit: No Status: Chronic (4) Hyperlipidemia Onset Date: 05/01/17 Current Visit: No Status: Chronic Qualifiers: (5) Hypertension Onset Date: 04/24/17 Current Visit: No Status: Chronic Qualifiers: (6) Hypothyroidism Onset Date: 04/24/17 Current Visit: No Status: Chronic Qualifiers: (7) Nephrolithiasis Current Visit: No Status: Chronic Brief History of Present Illness: PATIENT IS A 74-YEAR-OLD FEMALE WHO WAS RECENTLY IN THE HOSPITAL FOR SEIZURES. SHE WAS EVALUATED AND SEEN THE HAS PSEUDOSEIZURES. SHE WAS DISCHARGED HOME BUT CAME BACK INTO THE HOSPITAL 48 HR LATER WITH A SYNCOPAL EVENT. SHE WAS ADMITTED ONCE AGAIN TO THE HOSPITAL. PATIENT WAS WORKED UP AND AT THIS TIME PATIENT IS DOING WELL. PATIENT HAD AN MRI OF THE BRAIN WHICH HAS BEEN ORDERED. Hospital Course: MRI OF THE BRAIN REVEALED NO ABNORMALITIES. PATIENT CONTINUES ON ANTI EPILEPTICS. PATIENT HAS PSEUDOSEIZURES. THIS WILL NEED TO CONTINUE TO BE MONITORED AN OUTPATIENT. PATIENT WILL NEED OUTPATIENT VISUAL EEG. THIS CAN BE FORM AN OUTPATIENT. CONTINUE ANTI EPILEPTICS AT DISCHARGE. Vital Signs/Physical Exam: Temp Pulse Resp BP Pulse Ox 98.6 F 73 18 133/79 96 02/09/20 00:00 02/09/20 00:00 02/09/20 00:00 02/09/20 00:00 02/09/20 00:00 General: Alert, In no apparent distress, Oriented x3 Laboratory Data at Discharge: WBC 8.8 K/uL (4.3-10.9) 02/08/20 05:10 Hgb 12.9 g/dL (12.0-15.0) 02/08/20 05:10 Hct 39.2 % (36.0-45.0) 02/08/20 05:10 Plt Count 328 K/uL (152-406) 02/08/20 05:10 PT 12.2 SECONDS (9.5-12.5) 02/07/20 14:45 INR 1.03 02/07/20 14:45 Sodium 141 mmol/L (136-145) 02/08/20 05:10 Potassium 3.7 mmol/L (3.5-5.1) 02/08/20 05:10 BUN 9 mg/dL (7-18) 02/08/20 05:10 Creatinine 1.18 mg/dL (0.55-1.3) 02/08/20 05:10 Glucose 152 mg/dL (74-106) H 02/08/20 05:10 Uric Acid 4.5 mg/dL (2.6-6.0) 02/08/20 16:04 Magnesium 2.0 mg/dL (1.8-2.4) 02/07/20 14:45 Total Bilirubin 0.6 mg/dL (0.2-1.0) 02/08/20 05:10 AST 13 U/L (15-37) L 02/08/20 05:10 ALT 15 U/L (12-78) 02/08/20 05:10 Alkaline Phosphatase 81 U/L (45-117) 02/08/20 05:10 Home Medications: Aspirin [Aspirin EC 81 MG] 81 mg PO DAILY 02/06/20 Atorvastatin Calcium [Lipitor*] 10 mg PO BEDTIME 02/06/20 Gabapentin 300 mg PO DAILY 02/06/20 Levothyroxine [Synthroid*] 125 mcg PO [id number] 02/06/20 Metformin HCl [Metformin HCl ER] 500 mg PO BID 02/06/20 Pantoprazole [Protonix Tab*] 40 mg PO DAILY 02/06/20 Sertraline [Zoloft*] 50 mg PO DAILY 02/06/20 clonazePAM [Klonopin] 0.5 mg PO BID PRN #30 tablet 02/06/20 lamoTRIgine [Lamotrigine] 150 mg PO BID 02/06/20 levETIRAcetam [Keppra*] 500 mg PO DAILY 30 Days #30 tab 02/06/20 Patient Discharge Instructions: OK TO DC IV AND DC HOME. FOLLOW-UP WITH PRIMARY CARE PROVIDER IN 1-2 WEEKS. FOLLOW-UP WITH NEUROLOGY IN 1-2 WEEKS. RETURN TO THE ER IF SYMPTOMS WORSEN. CALL or TEXT DR. DIAZ AT [phone] IF ANY QUESTIONS REGARDING HOSPITAL STAY. PLEASE CALL THE FLOOR AT [phone] IF ANY MEDICATION OR NURSING QUESTIONS. Diet: AHA Activity: Fall precautions Time spent managing pt's care (in minutes): 25
[2020-02-09 04:10] LABS: Urine Protein/Creatinine Ratio 0.15 ratio (<0.15)
[2020-02-09] MEDS ORDERED: LEVOTHYROXINE SOD 0.125 MG TAB PO SCH (06:00)
[2020-02-09 07:23] LABS: BUN Blood Urea Nitrogen 9 mg/dL (7-18); Bicarbonate 28 mmol/L (21-32); Glucose Level 151 mg/dL (74-106); HDL Cholesterol 39 mg/dL (40-60); LDL Cholesterol, Calculated 58 (<130); Potassium 4.2 mmol/L (3.5-5.1); Sodium Level 140 mmol/L (136-145); Troponin I < 0.02 ng/mL (0.0-0.045)
[2020-02-09] MEDS: INSULIN -REGULAR HUMAN 50 UNIT/0.5 ML ML SQ SCH ×3 (07:30→16:30)
[2020-02-09] MEDS: lamoTRIgine 150 MG TAB PO SCH (08:17)
[2020-02-09] MEDS: ASPIRIN EC 81 MG TAB PO SCH (08:17)
[2020-02-09] MEDS: PANTOPRAZOLE 40MG TABLET PO SCH (08:18)
[2020-02-09] MEDS: levETIRAcetam 500 MG TAB PO SCH (08:18)
[2020-02-09] MEDS: SERTRALINE HCL 50 MG TAB PO SCH (08:20)
[2020-02-09] MEDS: NA CHLORIDE 0.9% 1,000 ML IV SCH (08:21)
[2020-02-09 08:39] VITALS: O2SAT 93
[2020-02-09] MEDS ORDERED: FOLIC ACID 1 MG TABLET PO SCH (09:00)
[2020-02-09] MEDS ORDERED: ROSUVASTATIN 10 MG TAB PO SCH (11:00)
[2020-02-09 16:40] VITALS: BP 153/82; TEMP 98.2
--- NOTE | 2020-02-09 17:14 | CON ---
Date of Consultation: 02/09/2020 Reason For Consultation: Elevated BUN and creatinine. History Of Present Illness: This is a 74-year-old female with significant past medical history of hy pertension; hyperlipidemia; questionable seizures, diabetes complicated with neuropathy, hypothyroidi sm, the patient came to the hospital because of syncope, found to have elevated BUN and creatinine. Creatinine was 1.2 with GFR of 42. For that reason, we have been consulted. Patient denied taking a ny nonsteroidal, no IV contrast. Patient was started on IV hydration, creatinine down to 1.1, GFR of 40. Reviewing the record for the patient, the patient's baseline creatinine around 1.4 with GFR of 35 back in September 2019. Allergies: NITROFURANTOIN, SHRIMP, PHENOBARBITAL, IODINE CONTRAST. Home Medications: Aspirin, atorvastatin, gabapentin, levothyroxine, metformin, pantoprazole, sertral ine, clonazepam. Past Medical History: Includes hypertension, seizure, CVA, hyperlipidemia. Past Surgical History: Includes hysterectomy, appendectomy, bladder surgery, cataract surgery. Family History: Positive for cancer, hypertension. Social History: Denies smoking, denies drinking, denies drug abuse. Review of Systems: Head and Neck: No red eye. No ear pain. GI: No nausea, no vomiting. : No polyuria, no dysuria, no hematuria. 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 Respiratory: No shortness of breath. Cardiovascular: No chest pain. Has syncope. Endocrine: No polydipsia. Skin: No rash. Neuro: Has syncope. Musculoskeletal: Low back pain. Physical Examination: General: When I saw the patient, patient lying in bed, comfortable. Vital Signs: Blood pressure of 134/60, pulse of 67, afebrile. Chest: Clear to auscultation. Heart: S1, S2. Regular. Abdomen: Soft, nontender. Extremities: No edema. Neuro: No focal. Diagnostic Studies: Renal ultrasound showing normal sized kidney 06/30. Assessment And Plan: 1.Acute kidney injury on chronic kidney disease, back to baseline. I going to go ahead and disconti nue intravenous fluid and we will monitor. 2.Hypertension. Controlled optimal. Continue current treatment. Given the presence of diabetes an d hypertension, patient is going to be a good candidate for angiotensin converting enzyme inhibitor. I am going to start her on low dose of angiotensin converting enzyme inhibitor. 3.Syncope as by Neurology. Follow up with Primary. 4.Diabetes as by Primary. 5.Alkalosis secondary to contraction, recovered. We will discontinue intravenous fluid. JAMSHID/DEVI Voice ID: [id number] Report ID: [id number]
[2020-02-10] MEDS ORDERED: lisinopriL 5 MG TAB PO SCH (09:00)
--- NOTE | 2020-02-11 10:01 | CON ---
Date of Consultation: 02/09/2020 Patient was seen in room 215, second floor on 02/09/2020. Type Of Service: Psychiatric consult. Chief Complaint: Depression. History Of Present Illness: Ms. Iman Saunders is a 74-year-old female. She is a , admitted to the ER on February 07, 2020 on account of frequent syncopal attacks and described being worked up for seizure disorder as well. Patient has been evaluated for worsening depression. On interview, she had admits to feeling depressed, but denied her depression as being overwhelming. She states that her mood is pleasant most part of the day, but denies anhedonia, denies decreased energy or motivation. States sleep is fine. No suicidal thoughts or self harm behavioral thoughts. She states that her depressive episodes following of her in 1991. Patient states she not currently on medication for depression and she has not been on medication for depression. Denies overwhelming anxiety and panic attack. Patient states the of her younger sister whom she is very close to contribute to her depressive episodes. Patient denies history of bipolar symptoms. No history of psychosis. She denies alcohol abuse of alcohol beverages and illicit substance abuse. 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 Physical Examination: Vital Signs: Blood pressure 142/67, pulse rate of 74, respiratory rate is 15, , O2 saturation on room air is 95%, temperature 97.8. Neurologic: Patient is an obese female, lying in bed, does not in any obvious acute distress. She is cooperative with interview, made good eye contact. No stereotypic movement noted. Speech is spontaneous, normal in rate, rhythm, and volume. No perseveration. Memory and concentration are fair. Mood, she described as dysphoric. Affect is mood congruent. Thought process is linear, and goal directed. Thought contents, no delusional thinking, no suicidal or homicidal ideation. No self injure thoughts. No rumination or obsession and no auditory or visual hallucination. Patient's Insight, judgement, and impulse control is fair. Fund of knowledge average. Language skills, fair. Diagnoses: 1. Major depressive disorder, unspecified. 2. Disappearance and of family member. Recommendations: Discuss diagnoses with patient. Discuss treatment modalities which includes antidepressant therapy. Patient declined medication at this time agreed to followup with psychiatrist for further evaluation. Patient to follow up with the provider at the outpatient clinic for further evaluation Plan discussed with patient's discussed with treatment team. I spent 45 minutes in evaluation of the patient, reviewing patient's chart and discussing with treatment team CLARK Voice ID: [id number] Report ID: [id number] KURT
== END 2020-02-09 16:51 | disposition home or self-care (01) ==
LOC: ER 13:26 → SUPCPDRO 13:26 → ERHOLD 17:20 → 2ND 18:05
PROVIDERS: ADMIT Hospitalist; ATTEND Hospitalist
DX: R55 Syncope and collapse (principal); G40.909 Epilepsy, unspecified, not intractable, without status epilepticus; E11.65 Type 2 diabetes mellitus with hyperglycemia; N17.9 Acute kidney failure, unspecified; F32.9 Major depressive disorder, single episode, unspecified; I65.22 Occlusion and stenosis of left carotid artery; F41.8 Other specified anxiety disorders; E87.3 Alkalosis; E78.5 Hyperlipidemia, unspecified; E03.9 Hypothyroidism, unspecified; N20.0 Calculus of kidney; E11.22 Type 2 diabetes mellitus with diabetic chronic kidney disease; I12.9 Hypertensive chronic kidney disease with stage 1 through stage 4 chronic kidney disease, or unspecified chronic kidney disease; N18.3 Chronic kidney disease, stage 3 (moderate); Z86.73 Personal history of transient ischemic attack (TIA), and cerebral infarction without residual deficits
CPT/HCPCS: 93005; 85025 ×2; 80048 ×2; 36415 ×3; 83735 ×2; 82550; 85610; 80061; 82947 ×8; 80076; 84550; 84443; 83036; 82570; 84484 ×2; 84481; 84439; 83970; 80053; 80177; 83880; 84146; 84156; 70450; 71045; 70553; 70544; 70549; 76770; 97535 ×2; 97110; 97112 ×2; 97116 ×2; 97161; 97530 ×3; 99285; A9577; J1650; J3010; J1953; J7030 ×2; G0378 ×4